=== PATIENT | male | born 1945 | race Caucasian/White ===

== ENCOUNTER → 2018-02-21 | Outpatient (CLI) | payer MEDICARE ==
[~2018-02-21] MED LIST: ATOR20TA PO; CARV25TA2 PO; FURO20TA3 PO; INSU100I13 SQ; INSU100I17 SQ; LEVO100T PO; LOSA50TA7 PO; SIRO1SOL PO; SIRO1TAB PO; TACR0.5C20 PO; TACR1CAP4 PO; WARF4TAB64 PO
== END | disposition home or self-care (01) ==
LOC: PMGWOUND 12:00
PROVIDERS: ATTEND Emergency Medicine Undersea and Hyperbaric Medicine
DX: T87.89 Other complications of amputation stump (principal); E11.621 Type 2 diabetes mellitus with foot ulcer; L97.514 Non-pressure chronic ulcer of other part of right foot with necrosis of bone; L97.521 Non-pressure chronic ulcer of other part of left foot limited to breakdown of skin; L97.411 Non-pressure chronic ulcer of right heel and midfoot limited to breakdown of skin; E11.51 Type 2 diabetes mellitus with diabetic peripheral angiopathy without gangrene; I11.0 Hypertensive heart disease with heart failure; I50.9 Heart failure, unspecified; M19.90 Unspecified osteoarthritis, unspecified site; I48.91 Unspecified atrial fibrillation; K21.9 Gastro-esophageal reflux disease without esophagitis; E78.5 Hyperlipidemia, unspecified; G47.30 Sleep apnea, unspecified; I25.10 Atherosclerotic heart disease of native coronary artery without angina pectoris; E66.9 Obesity, unspecified; Z68.33 Body mass index [BMI] 33.0-33.9, adult; Z85.828 Personal history of other malignant neoplasm of skin; Z86.73 Personal history of transient ischemic attack (TIA), and cerebral infarction without residual deficits; Y83.5 Amputation of limb(s) as the cause of abnormal reaction of the patient, or of later complication, without mention of misadventure at the time of the procedure
CPT/HCPCS: 99205

== ENCOUNTER 2018-03-26 05:11 | Emergency (ER) | payer MEDICARE ==
[~2018-03-26] VITALS: Ht 180.3 cm; Wt 127.0 kg
[~2018-03-26 05:11] MED LIST changes: +AMLO5TAB7 PO; +LOSA-73 PO; -LOSA50TA7 PO; +NYST15CR TP
[2018-03-26 05:36] LABS: BASO % 1 % (0-3); EOS # 0.2 x10^3/uL (0.0-0.7); EOS % 4 % (0-3); HEMATOCRIT 33.9 % (39.0-53.0); HEMOGLOBIN 11.2 g/dL (13.0-17.5); LYMPH # 0.6 x10^3/uL (1.0-4.8); LYMPH % 12 % (24-48); MEAN CORPUSCULAR HEMOGLOBIN 27 pg (25-35); MEAN CORPUSCULAR HGB CONC 33 g/dL (31-37); MEAN CORPUSCULAR VOLUME 83 fL (79-100); MONO # 0.6 x10^3/uL (0.0-1.1); MONO % 11 % (0-9); NEUT # 3.7 x10^3uL (1.8-7.7); NEUT % 73 % (31-73); PLATELET COUNT 185 x10^3/uL (140-400); RED BLOOD COUNT 4.09 x10^6/uL (4.30-5.70); RED CELL DISTRIBUTION WIDTH 17.1 % (11.5-14.5)
[2018-03-26 05:43] LABS: CALCIUM 9.5 mg/dL (8.5-10.1); CREATININE 1.4 mg/dL (0.7-1.3); GFR 49.8; POTASSIUM 4.4 mmol/L (3.5-5.1)
[2018-03-26 05:49] LABS: ALBUMIN 2.7 g/dL (3.4-5.0); ALBUMIN/GLOBULIN RATIO 0.6 (1.0-1.7); TOTAL BILIRUBIN 0.3 mg/dL (0.2-1.0); TOTAL PROTEIN 6.9 g/dL (6.4-8.2)
--- NOTE | 2018-03-26 05:49 | PHYS DOC ---
Adult General Chief Complaint Chief Complaint: COUGH HPI HPI Patient is a 72-year-old male who presents via EMS with report of coughing up blood. Patient states that he does not recall the incident and states that he is not sure how long he has been coughing for. He denies any chest pain or shortness of breath. He also denies any abdominal pain, nausea or vomiting. Patient states that he does not believe that he has had a nosebleed but admits that he does not recall. Additional history is limited as patient is very poor historian associated with dementia. Review of Systems Review of Systems Constitutional: Denies fever or chills [] HENT: Positive epistaxis[] Respiratory: Positive cough and hemoptysis without shortness of breath [] Cardiovascular: No additional information not addressed in HPI [] GI: Denies abdominal pain, nausea, vomiting [] Musculoskeletal: Denies back pain or joint pain [] All other systems were reviewed and found to be within normal limits, except as documented in this note. Allergies Allergies Allergies Coded Allergies Type Severity Reaction Last Updated Verified piperacillin Allergy Intermediate FEVER 02/24/18 Yes tazobactam Allergy Intermediate FEVER 02/24/18 Yes Physical Exam Physical Exam Constitutional: Well developed, well nourished, no acute distress, non-toxic appearance. [] HENT: Normocephalic, atraumatic, bilateral external ears normal, oropharynx moist, no oral exudates, fresh blood is noted within the right naris. [] Eyes: PERRLA, EOMI, conjunctiva normal, no discharge. [] Neck: Normal range of motion, no tenderness, supple, no stridor. [] Cardiovascular: Regular rate and rhythm [] Lungs & Thorax: Bilateral breath sounds clear to auscultation [] Abdomen: Bowel sounds normal, soft, no tenderness. [] Skin: Warm, dry, no erythema, no rash. [] Neurologic: Awake and alert, no focal deficits noted. [] Current Patient Data Vital Signs Vital Signs Date Time Temp Pulse Resp B/P (MAP) Pulse Ox O2 Delivery O2 Flow Rate FiO2 03/26/18 05:15 97.6 60 24 168/78 (108) 88 Room Air 97.6 Lab Values Laboratory Tests Test 03/26/18 05:25 White Blood Count 5.0 x10^3/uL (4.0-11.0) Red Blood Count 4.09 x10^6/uL (4.30-5.70) L Hemoglobin 11.2 g/dL (13.0-17.5) L Hematocrit 33.9 % (39.0-53.0) L Mean Corpuscular Volume 83 fL (79-100) Mean Corpuscular Hemoglobin 27 pg (25-35) Mean Corpuscular Hemoglobin Concent 33 g/dL (31-37) Red Cell Distribution Width 17.1 % (11.5-14.5) H Platelet Count 185 x10^3/uL (140-400) Neutrophils (%) (Auto) 73 % (31-73) Lymphocytes (%) (Auto) 12 % (24-48) L Monocytes (%) (Auto) 11 % (0-9) H Eosinophils (%) (Auto) 4 % (0-3) H Basophils (%) (Auto) 1 % (0-3) Neutrophils # (Auto) 3.7 x10^3uL (1.8-7.7) Lymphocytes # (Auto) 0.6 x10^3/uL (1.0-4.8) L Monocytes # (Auto) 0.6 x10^3/uL (0.0-1.1) Eosinophils # (Auto) 0.2 x10^3/uL (0.0-0.7) Basophils # (Auto) 0.0 x10^3/uL (0.0-0.2) Sodium Level 139 mmol/L (136-145) Potassium Level 4.4 mmol/L (3.5-5.1) Chloride Level 106 mmol/L (98-107) Carbon Dioxide Level 26 mmol/L (21-32) Anion Gap 7 (6-14) Blood Urea Nitrogen 30 mg/dL (8-26) H Creatinine 1.4 mg/dL (0.7-1.3) H Estimated GFR (Cockcroft-Gault) 49.8 BUN/Creatinine Ratio 21 (6-20) H Glucose Level 53 mg/dL (70-99) L Calcium Level 9.5 mg/dL (8.5-10.1) Total Bilirubin 0.3 mg/dL (0.2-1.0) Aspartate Amino Transferase (AST) 12 U/L (15-37) L Alanine Aminotransferase (ALT) 11 U/L (16-63) L Alkaline Phosphatase 102 U/L (46-116) Total Protein 6.9 g/dL (6.4-8.2) Albumin 2.7 g/dL (3.4-5.0) L Albumin/Globulin Ratio 0.6 (1.0-1.7) L Laboratory Tests 03/26/18 05:25 Laboratory Tests 03/26/18 05:25 EKG EKG [] Radiology/Procedures Radiology/Procedures [] Course & Med Decision Making Course & Med Decision Making Pertinent Labs and Imaging studies reviewed. (See chart for details) Patient moved to room upon arrival was evaluated by your medical staff after which blood work was obtained. I do feel that patient's episode of hemoptysis was due to epistaxis. At this time labs are pending and patient is signed out to Dr. Narvaez at 6:00 AM. Dragon Disclaimer Dragon Disclaimer This electronic medical record was generated, in whole or in part, using a voice recognition dictation system. Departure Departure Impression: Primary Impression: Epistaxis Additional Impression: Hypoglycemia Disposition: 01 HOME, SELF-CARE Condition: STABLE Referrals: ROSS SAMUEL MD (PCP) Patient Instructions: Hypoglycemia (Low Blood Sugar), Nosebleed Problem Qualifiers KHOA ARBOLEDA Jr. DO Mar 26, 2018 05:49
--- NOTE | 2018-03-26 07:45 | RAD ---
AP chest x-ray COMPARISON: Chest x-ray March 22, 2018. HISTORY: Cough FINDINGS: Marked cardiomegaly is stable. Single lead cardiac pacemaker again noted. Pulmonary vasculature congestion and pulmonary edema has mildly decreased. No pleural effusions or pneumothorax. Bones unremarkable. IMPRESSION: Mild improvement of the pulmonary vascular congestion and edema. Cardiomegaly is stable. Electronically signed by: Mickey Bee MD (03/26/2018 7:41 AM) [facility] [place]
[2018-03-26 08:37] VITALS: BP 160/75
== END 2018-03-26 08:30 | disposition home or self-care (01) ==
LOC: ER 05:11
DX: R04.0 Epistaxis (principal); E16.2 Hypoglycemia, unspecified; R04.2 Hemoptysis; F03.90 Unspecified dementia, unspecified severity, without behavioral disturbance, psychotic disturbance, mood disturbance, and anxiety; Z88.1 Allergy status to other antibiotic agents; Z88.8 Allergy status to other drugs, medicaments and biological substances
CPT/HCPCS: 36415; 71045; 80053; 85025; 99284

== ENCOUNTER → 2018-05-15 | Outpatient (CLI) | payer MEDICARE ==
[2018-04-10 05:23] VITALS: BP 178/69
[~2018-05-15] MED LIST changes: +ALPR0.254 PO; +ASPI-612 PO; +BISA10SU55 RC; +CEFD300C PO; +CLON0.1T12 PO; +DIPH25CA3 PO; +FURO40TA4 PO; +GUAI473L15 PO; +IPRA3AMP29 NEB; +ISOS30TA4 PO; +LACT1CAP21 PO; +LOPE2CAP88 PO; +MULT-245 PO; +POTA20TA4 PO; +WARF10TA45 MC
== END | disposition home or self-care (01) ==
LOC: PMGWOUND 10:53
PROVIDERS: ATTEND Nurse Practitioner Family
DX: T87.81 Dehiscence of amputation stump (principal); E11.621 Type 2 diabetes mellitus with foot ulcer; L97.514 Non-pressure chronic ulcer of other part of right foot with necrosis of bone; L97.512 Non-pressure chronic ulcer of other part of right foot with fat layer exposed; L97.413 Non-pressure chronic ulcer of right heel and midfoot with necrosis of muscle; L97.521 Non-pressure chronic ulcer of other part of left foot limited to breakdown of skin; L97.421 Non-pressure chronic ulcer of left heel and midfoot limited to breakdown of skin; E11.622 Type 2 diabetes mellitus with other skin ulcer; L89.899 Pressure ulcer of other site, unspecified stage; I13.2 Hypertensive heart and chronic kidney disease with heart failure and with stage 5 chronic kidney disease, or end stage renal disease; E11.22 Type 2 diabetes mellitus with diabetic chronic kidney disease; N18.6 End stage renal disease; I50.23 Acute on chronic systolic (congestive) heart failure; E11.52 Type 2 diabetes mellitus with diabetic peripheral angiopathy with gangrene; I96 Gangrene, not elsewhere classified; E11.42 Type 2 diabetes mellitus with diabetic polyneuropathy; E11.649 Type 2 diabetes mellitus with hypoglycemia without coma; E11.69 Type 2 diabetes mellitus with other specified complication; M86.179 Other acute osteomyelitis, unspecified ankle and foot; I48.0 Paroxysmal atrial fibrillation; I48.1 Persistent atrial fibrillation; I48.2 Chronic atrial fibrillation; E03.9 Hypothyroidism, unspecified; G47.30 Sleep apnea, unspecified; E78.5 Hyperlipidemia, unspecified; M19.90 Unspecified osteoarthritis, unspecified site; K21.9 Gastro-esophageal reflux disease without esophagitis; I25.10 Atherosclerotic heart disease of native coronary artery without angina pectoris; E66.9 Obesity, unspecified; Z68.33 Body mass index [BMI] 33.0-33.9, adult; Z79.4 Long term (current) use of insulin; Z99.2 Dependence on renal dialysis; Z85.810 Personal history of malignant neoplasm of tongue; Z85.820 Personal history of malignant melanoma of skin; Z85.528 Personal history of other malignant neoplasm of kidney; Z90.49 Acquired absence of other specified parts of digestive tract; Z86.73 Personal history of transient ischemic attack (TIA), and cerebral infarction without residual deficits; Y83.5 Amputation of limb(s) as the cause of abnormal reaction of the patient, or of later complication, without mention of misadventure at the time of the procedure
CPT/HCPCS: 11042; 97597

== ENCOUNTER 2018-06-21 07:52 | Inpatient (IN) | payer MEDICARE ==
[~2018-06-21] VITALS: Ht 177.8 cm; Wt 122.9 kg
[2018-06-21] VITALS (8 sets, daily range): BP systolic 151–201; BP diastolic 59–81
[~2018-06-21 07:52] MED LIST changes: +ACET325T9 PO; +AMLO5TAB10 PO; -AMLO5TAB7 PO; +ASCO500T2 PO; +CHOL100013 PO; +CYCL10TA2 PO; +HYDR-2761 PO; +HYDROmorphone 2 MG/ML VIAL IV PRN; +INSU100C SQ; +IV RINGERS,LACTATED 1000ML 1,000 ML IV SCH; +LIDOCAINE 1% PF 2 ML VIAL. ID PRN; +MERO500V15 IV; +MORPHINE SULFATE 2 MG/ML VIAL. IV PRN; +OMEG1CAP6 PO; +ONDANSETRON PF 4 MG/2 ML VIAL. IV PRN; +PROCHLORPERAZINE 10 MG/2 ML VIAL. IV PRN; +SULF1TAB24 PO; +UBID100C26 PO; +WARF2TAB96 PO; +fentaNYL PF VIAL 100 MCG/2 ML VIAL IV PRN
--- NOTE | 2018-06-21 10:20 | NUR ---
Pt arrived to unit via gurney. Transferred to bed in room without complications. Pt A&Ox4. Asked pt to verbalize pain. Pt explains, "what's the point?" Explained to pt the need to know his pain scale so he can be treated appropriately. Pt does not voice pain number at this time. Pt at bedside. Wound assessment complete with photos. New admit requirements in progress. Pt laying in bed with call light in reach at bedside.
--- NOTE | 2018-06-21 10:58 | PDOC2 ---
CONSULT Date of Consult Date of Consult DATE: 06/21/18 TIME: 10:43 Reason for Consult Reason for Consult: Bilateral lower extremity wounds, right leg amputation and left heel debridement scheduled for tomorrow. Referring Physician Referring Physician: Dr. Zamudio Identification/Chief Complaint Chief Complaint Bilateral lower extremity wounds, bilateral foot pain. Source Source: Caregiver, Chart review, Patient History of Present Illness Reason for Visit: 72 year old male well-known to our practice who was brought in via outpatient for planned surgical procedure. Patient noted to have abnormal lab values. Surgery has been postponed until tomorrow. Recommend patient be admitted via the hospitalist. Patient has a history of peripheral vascular disease with bilateral foot ulcers. During recent hospitalization patient had bilateral lower extremity angiograms with interventions. Patient continues to have problems with nonhealing bilateral foot ulcers despite intervention. Patient is scheduled for a right above-knee amputation along with left heel debridement tomorrow with Dr. Stewart. Will administer FFP and packed red blood cells with repeat labs in a.m. Past Medical History Cardiovascular: AFIB, HTN, Pulmonary hypertension, Other Pulmonary: No pertinent hx CENTRAL NERVOUS SYSTEM: CVA, Periperal neuropathy GI: Other Heme/Onc: No pertinent hx Hepatobiliary: No pertinent hx Psych: No pertinent hx Musculoskeletal: Osteoarthritis Rheumatologic: No pertinent hx Infectious disease: No pertinent hx Renal/: Chronic renal insuff, Renal Ca. Endocrine: Diabetes, Hypothyroidism Past Surgical History Past Surgical History: Cholecystectomy, Other (left leg angiogram with popliteal atherectomy, left first toe closed amputation, debridement left heel wound. Right lateral foot debridement. Right transmetatarsal any dictation open wound debridement. Right popliteal artery, TP trunk, posterior tibial artery, medial tarsal artery angioplasty.) Family History Family History: Hypertension Social History ALCOHOL: none Drugs: None Lives: with Family (currently residing in Rehab facility) Current Medications Current Medications Current Medications Ondansetron HCl (Zofran) 4 mg PRN Q6HRS PRN IV NAUSEA/VOMITING; Start 06/21/18 at 07:00; Stop 06/22/18 at 06:59 Fentanyl Citrate (Fentanyl 2ml Vial) 25 mcg PRN Q5MIN PRN IV MILD PAIN; Start 06/21/18 at 07:00; Stop 06/22/18 at 06:59 Fentanyl Citrate (Fentanyl 2ml Vial) 50 mcg PRN Q5MIN PRN IV MODERATE TO SEVERE PAIN; Start 06/21/18 at 07:00; Stop 06/22/18 at 06:59 Morphine Sulfate (Morphine Sulfate) 1 mg PRN Q10MIN PRN IV SEVERE PAIN; Start 06/21/18 at 07:00; Stop 06/22/18 at 06:59 Ringer's Solution 1,000 ml @ 30 mls/hr Q24H IV ; Start 06/21/18 at 07:00; Stop 06/21/18 at 18:59 Lidocaine HCl (Xylocaine-Mpf 1% 2ml Vial) 2 ml PRN 1X PRN ID IV START; Start at 07:00; Stop 06/21/18 at 07:01; Status DC Hydromorphone HCl (Dilaudid) 0.5 mg PRN Q10MIN PRN IV SEV PAIN, Second choice; Start 06/21/18 at 07:00; Stop 06/22/18 at 06:59 Prochlorperazine Edisylate (Compazine) 5 mg PACU PRN PRN IV NAUSEA, MRX1; Start 06/21/18 at 07:00; Stop 06/22/18 at 06:59 Cefazolin Sodium/ Dextrose 50 ml @ 100 mls/hr 1X PREOP PRN IV PRIOR TO PROCEDURE; Start 06/21/18 at 06:00; Stop 06/21/18 at 09:40; Status DC Cefazolin Sodium/ Dextrose 50 ml @ 100 mls/hr 1X PREOP PRN IV PRIOR TO PROCEDURE; Start 06/21/18 at 09:45; Stop 06/22/18 at 09:44 Active Scripts Active Vitamin C (Ascorbic Acid) 500 Mg Tablet 500 Mg PO DAILY 30 Days Tylenol (Acetaminophen) 325 Mg Tablet 650 Mg PO PRN Q6HRS PRN 10 Days Hydrocodone-Apap 5-325 (Hydrocodone Bit/Acetaminophen) 1 Tab Tablet 1 Tab PO PRN QID PRN 5 Days Aspirin Ec (Aspirin) 81 Mg Tablet.dr 81 Mg PO DAILYWBKFT 30 Days Duoneb 0.5-3(2.5) Mg/3 Ml (Albuterol/Ipratropium) 3 Ml Ampul.neb 3 Ml NEB PRN QID PRN 30 Days Reported Cyclobenzaprine Hcl 10 Mg Tablet 0-5 Tab PO PRN Q6HRS PRN Meropenem 500 Mg Vial 500 Mg IV Q8HRS Humalog (Insulin Lispro) 100 Unit/1 Ml Cartridge 0 SQ QIDACHS Lantus Solostar (Insulin Glargine,Hum.rec.anlog) 100 Unit/1 Ml Insuln.pen 15 Unit SQ QHS Warfarin Sodium 2 Mg Tablet 2 Mg PO DAILY [id number] Coq-10 (Ubidecarenone) 100 Mg Capsule 100 Mg PO DAILY Vitamin D (Cholecalciferol (Vitamin D3)) 1,000 Unit Capsule 1 Cap PO DAILY Culturelle (Lactobacillus Rhamnosus Gg) 1 Each Capsule 1 Each PO BID Multi Vitamin Daily (Multivitamin) 1 Each Tablet 1 Each PO DAILY Furosemide 40 Mg Tablet 1 Tab PO DAILY Prograf (Tacrolimus) 0.5 Mg Capsule 0.5 Mg PO BID Rapamune (Sirolimus) 1 Mg Tablet 1 Mg PO DAILY Lipitor (Atorvastatin Calcium) 20 Mg Tablet 1 Tab PO QHS Synthroid (Levothyroxine Sodium) 100 Mcg Tablet 1 Tab PO DAILY Carvedilol 25 Mg Tablet 1 Tab PO BID Allergies Allergies: Coded Allergies: adhesive (Verified Allergy, Intermediate, small blisters on skin, 05/23/18) piperacillin (Verified Allergy, Intermediate, FEVER, 02/24/18) tazobactam (Verified Allergy, Intermediate, FEVER, 02/24/18) ROS Review of System Constitutional: No fever, chills, fatigue or weight loss. Respiratory: No cough or sputum production. Cardiovascular: No chest pain, palpitations or peripheral edema. Gastrointestinal: No abdominal pain, nausea, constipation or diarrhea. Integumentary/breast: As per HPI. Musculoskeletal: As per HPI, limited mobility due to lower extremity wounds. Neurological: No gross deficits All other reviews systems negative except history of present illness. Physical Exam General: Alert, Oriented X3 Lungs: Normal air movement Skin: Other (Dressings dry and intact to right foot, healed left first toe amputation, left heel with dry gangrene. Palpable left DP, Doppler Left PT, Doppler Right DP.) Assessment/Plan Assessment/Plan Impression: 1. Left bilateral foot ulcers, peripheral vascular disease. 2. Diabetes 3. Renal Insufficiency 4. Anticoagulation 5. History of kidney transplant Plan: Right Above Knee amputation and left heel debridement 06/22/2018. INR 1.6 H/H: 8.9 /26.9. Administer FFP and PRBCs, repeat lab in am. Would prefer INR near normal to proceed with amputation. Continue bedrest with off-loading left heel. Hold Warfarin Continue antiplatelet therapy with aspirin. Consult Wound Care Consult ID FELICITA DONATO APRN Jun 21, 2018 10:58
[2018-06-21] MEDS ORDERED: MICO130A9 TP (13:15)
[2018-06-21] MEDS ORDERED: ACETAMINOPHEN 325 MG TABLET. PO PRN (13:30)
[2018-06-21] MEDS ORDERED: ALBUTEROL SULFATE 2.5 MG/3 ML NEBU. NEB PRN (13:30)
[2018-06-21] MEDS: LEVOTHYROXINE 100 MCG TABLET PO SCH (14:00)
[2018-06-21] MEDS: FUROSEMIDE 40 MG TABLET. PO SCH (14:00)
[2018-06-21] MEDS: TACROLIMUS 0.5 MG CAPSULE PO SCH ×2 (14:00→22:09)
[2018-06-21] MEDS: SIROLIMUS 1 MG PO SCH (14:00)
[2018-06-21] MEDS ORDERED: MEROPENEM 500 MG IV SCH (14:00)
[2018-06-21] MEDS: ASCORBIC ACID 500 MG TABLET PO SCH (14:19)
[2018-06-21] MEDS: MICONAZOLE NITRATE 2% TOPICAL POWDER 85GM JAR. TP SCH ×2 (14:19→22:15)
[2018-06-21] MEDS: CHOLECALCIFEROL (VITAMIN D3) 1,000 UNIT TABLET PO SCH (14:19)
[2018-06-21] MEDS: HYDROcodone/APAP 5/325MG 1 TAB TABLET PO PRN ×2 (14:19→17:32)
[2018-06-21] MEDS: MULTIVITAMIN with MINERAL TABLET. PO SCH (14:19)
[2018-06-21] MEDS: MEROPENEM 500 MG in IV NORMAL SALINE 50ML 50 ML IV SCH ×2 (14:20→22:34)
--- NOTE | 2018-06-21 14:53 | PDOC ---
Infectious Disease Note Subjective: Subjective Pt well known to our team from last hosp Readmitted for planned amputation of the Rt AKA and Lt foot debridement tomorrrow if labs permit 72 year old male history of peripheral vascular disease with bilateral foot nonhealing ulcers, renal transplant, s/p numerous vascular interventions including I and Ds .Pt was on merrem . Patient continues to have problems with nonhealing bilateral foot ulcers despite prolonged medical and surgical intervention. Patient is scheduled for a right above-knee amputation along with left heel debridement tomorrow Today pt denies any f/c/n/v/d/sob/cough/chestpain/abdo pain/gu symptoms ROS neg PMH see last consult Med reviewed Allergies zosyn but is tolerating merrem SH denies any smoking,etoh ROS: ROS Negative except for above. 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 Oral cavity clear NECK: Supple LUNGS: Clear. HEART: S1, S2. Pacemaker ABDOMEN: Soft, nontender EXTREMITIES: Both lower extremities/feet bandaged w/ wound vac in place ( Bilat foot wounds ,see vascular note) SKIN: No rash NEUROLOGIC: Alert, responds appropriately and follows commands PICC line in place Medications: Inpatient Meds: Current Medications Medications (Trade) Dose Ordered Sig/Dee Dee Start Time Stop Time Status Last Admin Dose Admin Acetaminophen (Tylenol) 650 mg PRN Q6HRS PRN 06/21/18 13:30 Acetaminophen/ Hydrocodone Bitart (Lortab 5/325) 1 tab PRN QID PRN 06/21/18 13:30 06/21/18 14:19 1 TAB Albuterol Sulfate (Ventolin Neb Soln) 2.5 mg PRN Q6HRS PRN 06/21/18 13:30 Ascorbic Acid (Vitamin C) 500 mg DAILY 06/21/18 14:00 06/21/18 14:19 500 MG Atorvastatin Calcium (Lipitor) 20 mg QHS 06/21/18 21:00 Carvedilol (Coreg) 25 mg BIDWMEALS 06/21/18 17:00 Cefazolin Sodium/ Dextrose 50 ml @ 100 mls/hr 1X PREOP PRN 06/21/18 09:45 06/22/18 09:44 Cyclobenzaprine HCl (Flexeril) 10 mg PRN Q6HRS PRN 06/21/18 13:30 Fentanyl Citrate (Fentanyl 2ml Vial) 50 mcg PRN Q5MIN PRN 06/21/18 07:00 06/22/18 06:59 Furosemide (Lasix) 40 mg DAILY 06/21/18 14:00 Hydromorphone HCl (Dilaudid) 0.5 mg PRN Q10MIN PRN 06/21/18 07:00 06/22/18 06:59 Insulin Glargine (Lantus) 15 units QHS 06/21/18 21:00 Insulin Human Lispro (HumaLOG) 151-2,00: 2 UNITS 201-250... TIDWMEALS 06/21/18 17:00 Lactobacillus Rhamnosus (Culturelle) 1 cap BID 06/21/18 21:00 Levothyroxine Sodium (Synthroid) 100 mcg DAILY07 06/21/18 14:00 Lidocaine HCl (Xylocaine-Mpf 1% 2ml Vial) 2 ml PRN 1X PRN 06/21/18 07:00 06/21/18 07:01 DC Meropenem 500 mg/ Sodium Chloride 50 ml @ 100 mls/hr Q8HRS 06/21/18 14:00 06/21/18 14:20 100 MLS/HR Miconazole Nitrate (Desenex) 1 kale TID 06/21/18 14:00 06/21/18 14:19 1 KALE Morphine Sulfate (Morphine Sulfate) 1 mg PRN Q10MIN PRN 06/21/18 07:00 06/22/18 06:59 Multivitamins (Thera M Plus) 1 tab DAILY 06/21/18 14:00 06/21/18 14:19 1 TAB Non-Formulary Medication (Meropenem ) 500 mg Q8HRS 06/21/18 14:00 UNV Non-Formulary Medication (Sirolimus (Rapamune)) 1 mg DAILY 06/21/18 14:00 Non-Formulary Medication (Ubidecarenone (Coq-10)) 100 mg DAILY 06/22/18 09:00 UNV Ondansetron HCl (Zofran) 4 mg PRN Q6HRS PRN 06/21/18 07:00 06/22/18 06:59 Prochlorperazine Edisylate (Compazine) 5 mg PACU PRN PRN 06/21/18 07:00 06/22/18 06:59 Ringer's Solution 1,000 ml @ 30 mls/hr Q24H 06/21/18 07:00 06/21/18 18:59 Tacrolimus (Prograf) 0.5 mg BID 06/21/18 14:00 Vitamin D (Vitamin D3) 1,000 unit DAILY 06/21/18 14:00 06/21/18 14:19 1,000 UNIT Labs: Lab Laboratory Tests Test 06/21/18 10:31 Glucose (Fingerstick) 159 mg/dL (70-99) Objective: Assessment: Diabetic foot wounds RLE 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 Right lateral foot open wound with necrotic tissue and exposed bone -s/p sharp excisional debridement of the right lateral foot wound, removing necrotic skin, subcutaneous tissue, tendon and small amount of bone, 05/31 -s/p TMA open wound debridement sharply excising necrotic subcutaneous tissue throughout the wound bed, 2/ Awaiting RT AKA 06/22 s/p left leg angiogram with tibial angioplasty, 2/ DM HTN Renal transplant Renal insufficiency Warfarin therapy Plan: Plan of Care Continue meropenem cont supportive care cont wound management D/W RN Thank you GENESIS LOVE MD Jun 21, 2018 14:53
--- NOTE | 2018-06-21 15:15 | NUR ---
Wound care: Patient seen per wound care consult. See wound assessment. Patient is well known to us in the wound clinic. Patient scheduled for surgery tomorrow 06/22/18 for Right AKA per RN. RN stated she pictured, measured, and redressed all right extremity wounds. Wound care to see patient for left heel wound. Wound cleansed and assessed. Recommendations for medi-honey, xeroform gauze, and foam dressing. Dressing applied and patient tolerated well. Dressings to right extremity C/D/I. No other wounds noted upon complete head to toe assessment. Patient repositioned at this time. Patient is on a P-500. Bilateral podus boots reapplied. Dressing change instructions left in room. Bed lowered and call light in reach. Will follow up with patient on Tuesday.
[2018-06-21] MEDS: CYCLOBENZAPRINE 10 MG TABLET. PO PRN (15:24)
[2018-06-21] MEDS: cloNIDine HCL 0.1 MG TABLET PO PRN ×2 (15:25→22:09)
[2018-06-21] MEDS: INSULIN LISPRO 300 UNITS/3 ML INSULN.PEN. SQ SCH (17:00)
[2018-06-21] MEDS: CARVEDILOL 12.5 MG TABLET. PO SCH (17:31)
[2018-06-21] MEDS ORDERED: PHYTONADIONE 10 MG/ML ORAL SOLUTION. PO ONE (20:45)
--- NOTE | 2018-06-21 20:48 | NUR ---
This nurse spoke with Dr. Luu this evening. He stated to hold FFP for tonight and wait for labs to come back tomorrow before maybe giving a unit in the morning. Vitamin K was ordered for this evening as well as a repeat H&H to check if we need to administer another unit of PRBC. Will continue to monitor.
[2018-06-21 22:03] LABS: HEMATOCRIT 30.8 % (39.0-53.0)
[2018-06-21] MEDS: ATORVASTATIN CALCIUM 20 MG TABLET PO SCH (22:08)
[2018-06-21] MEDS: LACTOBACILLUS RHAMNOSUS GG 1 CAPSULE. PO SCH (22:09)
[2018-06-21] MEDS: INSULIN GLARGINE 300 UNITS/3 ML INSULN.PEN. SQ SCH (22:14)
[2018-06-22] VITALS (14 sets, daily range): BP systolic 152–224; BP diastolic 56–87
[2018-06-22] MEDS ORDERED: hydrALAZINE 20 MG/ML VIAL. IVP ONE (00:45)
--- NOTE | 2018-06-22 01:30 | NUR ---
Pt. was transferred to his "sand" bed. This nurse took picture of pt.'s coccyx and redressed it with foam.
[2018-06-22 04:36] LABS: BASO % 1 % (0-3); EOS # 0.1 x10^3/uL (0.0-0.7); EOS % 4 % (0-3); HEMATOCRIT 31.1 % (39.0-53.0); HEMOGLOBIN 10.2 g/dL (13.0-17.5); LYMPH # 0.5 x10^3/uL (1.0-4.8); LYMPH % 14 % (24-48); MEAN CORPUSCULAR HEMOGLOBIN 26 pg (25-35); MEAN CORPUSCULAR HGB CONC 33 g/dL (31-37); MEAN CORPUSCULAR VOLUME 81 fL (79-100); MONO # 0.4 x10^3/uL (0.0-1.1); MONO % 11 % (0-9); NEUT # 2.5 x10^3uL (1.8-7.7); NEUT % 70 % (31-73); PLATELET COUNT 116 x10^3/uL (140-400); RED BLOOD COUNT 3.86 x10^6/uL (4.30-5.70); RED CELL DISTRIBUTION WIDTH 16.7 % (11.5-14.5); WHITE BLOOD COUNT 3.6 x10^3/uL (4.0-11.0)
[2018-06-22 05:05] LABS: PROTHROMBIN TIME PATIENT 15.6 SEC (11.7-14.0)
[2018-06-22] MEDS: MEROPENEM 500 MG in IV NORMAL SALINE 50ML 50 ML IV SCH ×3 (05:59→22:12)
[2018-06-22] MEDS ORDERED: PROPOFOL 0 ML IV ONE (06:56)
[2018-06-22] MEDS ORDERED: FAMOTIDINE 20 MG/2 ML VIAL ONE (06:56)
[2018-06-22] MEDS ORDERED: ONDANSETRON PF 4 MG/2 ML VIAL. ONE (06:56)
[2018-06-22] MEDS ORDERED: DEXAMETHASONE SOD PHOS 20 MG/5 ML VIAL. ONE (06:56)
[2018-06-22] MEDS ORDERED: LIDOCAINE 2% PF 5 ML VIAL. ONE (06:56)
[2018-06-22] MEDS ORDERED: ROCURONIUM 50 MG/5 ML VIAL. ONE (06:57)
[2018-06-22] MEDS ORDERED: fentaNYL PF VIAL 100 MCG/2 ML VIAL ONE ×2 (06:57→10:10)
[2018-06-22] MEDS ORDERED: ONDANSETRON PF 4 MG/2 ML VIAL. IV PRN (07:00)
[2018-06-22] MEDS ORDERED: LIDOCAINE 1% PF 2 ML VIAL. ID PRN (07:00)
[2018-06-22] MEDS ORDERED: HYDROmorphone 2 MG/ML VIAL IV PRN (07:00)
[2018-06-22] MEDS ORDERED: MORPHINE SULFATE 2 MG/ML VIAL. IV PRN (07:00)
[2018-06-22] MEDS ORDERED: PROCHLORPERAZINE 10 MG/2 ML VIAL. IV PRN (07:00)
[2018-06-22] MEDS ORDERED: IV RINGERS,LACTATED 1000ML 1,000 ML IV SCH (07:00)
--- NOTE | 2018-06-22 07:11 | NUR ---
Pt.'s arrived in room around 0615. Report was given to AMY Robbins in PACU. Pt. left floor at 0639.
[2018-06-22] MEDS ORDERED: ETOMIDATE 20 MG/10 ML VIAL. IV ONE (07:38)
[2018-06-22] MEDS: INSULIN LISPRO 300 UNITS/3 ML INSULN.PEN. SQ SCH ×3 (07:59→17:00)
[2018-06-22] MEDS: MICONAZOLE NITRATE 2% TOPICAL POWDER 85GM JAR. TP SCH ×3 (08:00→21:00)
[2018-06-22] MEDS ORDERED: 0.9 % SODIUM CHLORIDE 20 ML VIAL. IJ ONE (08:38)
[2018-06-22] MEDS ORDERED: hydrALAZINE 20 MG/ML VIAL. ONE (08:38)
--- NOTE | 2018-06-22 08:38 | PDOC ---
GENERAL General: see dictated H&P. ok for surgery today. INR 1.3. VITAL SIGNS Vital Signs: Vital Signs Date Time Temp Pulse Resp B/P (MAP) Pulse Ox O2 Delivery O2 Flow Rate FiO2 06/22/18 06:56 97.4 63 17 194/83 97 Nasal Cannula 3.0 97.4 I & O I & O Intake and Output 06/22/18 07:00 Intake Total 30 ml Output Total 200 ml Balance -170 ml Intake Blood Product IV Normal Saline Flush 30 ml Output Urine Total 200 ml # Voids 1 # Bowel Movements 3 ALLERGIES Allergies: Allergies Coded Allergies Type Severity Reaction Last Updated Verified adhesive Allergy Intermediate small blisters on skin 05/23/18 Yes piperacillin Allergy Intermediate FEVER 02/24/18 Yes tazobactam Allergy Intermediate FEVER 02/24/18 Yes MEDS Medications: Current Medications Medications (Trade) Dose Ordered Sig/Dee Dee Start Time Stop Time Status Last Admin Dose Admin Acetaminophen (Tylenol) 650 mg PRN Q6HRS PRN 06/21/18 13:30 Acetaminophen/ Hydrocodone Bitart (Lortab 5/325) 1 tab PRN QID PRN 06/21/18 13:30 06/21/18 17:32 1 TAB Albuterol Sulfate (Ventolin Neb Soln) 2.5 mg PRN Q6HRS PRN 06/21/18 13:30 Ascorbic Acid (Vitamin C) 500 mg DAILY 06/21/18 14:00 06/21/18 14:19 500 MG Atorvastatin Calcium (Lipitor) 20 mg QHS 06/21/18 21:00 06/21/18 22:08 20 MG Carvedilol (Coreg) 25 mg BIDWMEALS 06/21/18 17:00 06/21/18 17:31 25 MG Cefazolin Sodium/ Dextrose 50 ml @ 100 mls/hr 1X PREOP PRN 06/21/18 09:45 06/22/18 09:44 Clonidine HCl (Catapres) 0.1 mg PRN Q6HRS PRN 06/21/18 15:30 06/21/18 22:09 0.1 MG Cyclobenzaprine HCl (Flexeril) 10 mg PRN Q6HRS PRN 06/21/18 13:30 06/21/18 15:24 10 MG Dexamethasone Sodium Phosphate (Decadron) 20 mg STK-MED ONCE 06/22/18 06:56 06/22/18 06:57 DC Etomidate (Amidate) 20 mg STK-MED ONCE 06/22/18 07:38 06/22/18 07:39 DC Famotidine (Pepcid Vial) 20 mg STK-MED ONCE 06/22/18 06:56 06/22/18 06:57 DC Fentanyl Citrate (Fentanyl 2ml Vial) 100 mcg STK-MED ONCE 06/22/18 06:57 06/22/18 06:58 DC Furosemide (Lasix) 40 mg DAILY 06/21/18 14:00 Hydralazine HCl (Apresoline Inj) 10 mg 1X ONCE 06/22/18 00:45 06/22/18 00:46 DC 06/22/18 00:54 10 MG Hydromorphone HCl (Dilaudid) 0.5 mg PRN Q10MIN PRN 06/22/18 07:00 06/23/18 06:59 Insulin Glargine (Lantus) 15 units QHS 06/21/18 21:00 06/21/18 22:14 15 UNITS Insulin Human Lispro (HumaLOG) 151-2,00: 2 UNITS 201-250... TIDWMEALS 06/21/18 17:00 Lactobacillus Rhamnosus (Culturelle) 1 cap BID 06/21/18 21:00 06/21/18 22:09 1 CAP Levothyroxine Sodium (Synthroid) 100 mcg DAILY07 06/21/18 14:00 Lidocaine HCl (Lidocaine Pf 2% Vial) 5 ml STK-MED ONCE 06/22/18 06:56 06/22/18 06:57 DC Lidocaine HCl (Xylocaine-Mpf 1% 2ml Vial) 2 ml PRN 1X PRN 06/22/18 07:00 06/23/18 06:59 Meropenem 500 mg/ Sodium Chloride 50 ml @ 100 mls/hr Q8HRS 06/21/18 14:00 06/22/18 05:59 100 MLS/HR Miconazole Nitrate (Desenex) 1 kale TID 06/21/18 14:00 06/21/18 22:15 1 KALE Morphine Sulfate (Morphine Sulfate) 1 mg PRN Q10MIN PRN 06/22/18 07:00 06/23/18 06:59 Multivitamins (Thera M Plus) 1 tab DAILY 06/21/18 14:00 06/21/18 14:19 1 TAB Non-Formulary Medication (Meropenem ) 500 mg Q8HRS 06/21/18 14:00 UNV Non-Formulary Medication (Sirolimus (Rapamune)) 1 mg DAILY 06/21/18 14:00 Non-Formulary Medication (Ubidecarenone (Coq-10)) 100 mg DAILY 06/22/18 09:00 UNV Ondansetron HCl (Zofran) 4 mg STK-MED ONCE 06/22/18 06:56 06/22/18 06:57 DC Phytonadione (Mephyton Oral Soln) 5 mg 1X ONCE 06/21/18 20:45 06/21/18 20:46 DC 06/21/18 22:07 5 MG Prochlorperazine Edisylate (Compazine) 5 mg PACU PRN PRN 06/22/18 07:00 06/23/18 06:59 Propofol 0 ml @ As Directed STK-MED ONCE 06/22/18 06:56 06/22/18 06:57 DC Ringer's Solution 1,000 ml @ 30 mls/hr Q24H 06/22/18 07:00 06/22/18 18:59 Rocuronium [place] (Zemuron) 50 mg STK-MED ONCE 06/22/18 06:57 06/22/18 06:58 DC Tacrolimus (Prograf) 0.5 mg BID 06/21/18 14:00 06/21/18 22:09 0.5 MG Vitamin D (Vitamin D3) 1,000 unit DAILY 06/21/18 14:00 06/21/18 14:19 1,000 UNIT LAB Lab: Laboratory Tests Test 06/21/18 10:31 06/21/18 16:17 06/21/18 20:26 06/21/18 21:45 Glucose (Fingerstick) 159 mg/dL (70-99) 199 mg/dL (70-99) 189 mg/dL (70-99) Hemoglobin 10.0 g/dL (13.0-17.5) Hematocrit 30.8 % (39.0-53.0) Mean Corpuscular Hemoglobin Concent 32 g/dL (31-37) Test 06/22/18 04:00 06/22/18 07:18 White Blood Count 3.6 x10^3/uL (4.0-11.0) Red Blood Count 3.86 x10^6/uL (4.30-5.70) Hemoglobin 10.2 g/dL (13.0-17.5) Hematocrit 31.1 % (39.0-53.0) Mean Corpuscular Volume 81 fL (79-100) Mean Corpuscular Hemoglobin 26 pg (25-35) Mean Corpuscular Hemoglobin Concent 33 g/dL (31-37) Red Cell Distribution Width 16.7 % (11.5-14.5) Platelet Count 116 x10^3/uL (140-400) Neutrophils (%) (Auto) 70 % (31-73) Lymphocytes (%) (Auto) 14 % (24-48) Monocytes (%) (Auto) 11 % (0-9) Eosinophils (%) (Auto) 4 % (0-3) Basophils (%) (Auto) 1 % (0-3) Neutrophils # (Auto) 2.5 x10^3uL (1.8-7.7) Lymphocytes # (Auto) 0.5 x10^3/uL (1.0-4.8) Monocytes # (Auto) 0.4 x10^3/uL (0.0-1.1) Eosinophils # (Auto) 0.1 x10^3/uL (0.0-0.7) Basophils # (Auto) 0.0 x10^3/uL (0.0-0.2) Prothrombin Time 15.6 SEC (11.7-14.0) Prothromb Time International Ratio 1.3 (0.8-1.1) Glucose (Fingerstick) 91 mg/dL (70-99) ROSS SAMUEL MD Jun 22, 2018 08:38
[2018-06-22] MEDS ORDERED: NEOSTIGMINE 10 MG/10 ML VIAL. ONE (08:39)
[2018-06-22] MEDS ORDERED: GLYCOPYRROLATE 1 MG/5 ML VIAL. ONE (08:39)
--- NOTE | 2018-06-22 08:46 | PDOC ---
Infectious Disease Note Subjective: Subjective pt doing ok denies any f/c/n/v/d/sob/cough/chestpain/abdo pain/gu symptoms awaiting surgery today ROS: ROS Negative except for above. 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 Oral cavity clear NECK: Supple LUNGS: Clear. HEART: S1, S2. Pacemaker ABDOMEN: Soft, nontender EXTREMITIES: Both lower extremities/feet bandaged w/ wound vac in place ( Bilat foot wounds ,see vascular note) SKIN: No rash NEUROLOGIC: Alert, responds appropriately and follows commands PICC line in place Medications: Inpatient Meds: Current Medications Medications (Trade) Dose Ordered Sig/Dee Dee Start Time Stop Time Status Last Admin Dose Admin Acetaminophen (Tylenol) 650 mg PRN Q6HRS PRN 06/21/18 13:30 Acetaminophen/ Hydrocodone Bitart (Lortab 5/325) 1 tab PRN QID PRN 06/21/18 13:30 06/21/18 17:32 1 TAB Albuterol Sulfate (Ventolin Neb Soln) 2.5 mg PRN Q6HRS PRN 06/21/18 13:30 Ascorbic Acid (Vitamin C) 500 mg DAILY 06/21/18 14:00 06/21/18 14:19 500 MG Atorvastatin Calcium (Lipitor) 20 mg QHS 06/21/18 21:00 06/21/18 22:08 20 MG Carvedilol (Coreg) 25 mg BIDWMEALS 06/21/18 17:00 06/21/18 17:31 25 MG Cefazolin Sodium/ Dextrose 50 ml @ 100 mls/hr 1X PREOP PRN 06/21/18 09:45 06/22/18 09:44 Clonidine HCl (Catapres) 0.1 mg PRN Q6HRS PRN 06/21/18 15:30 06/21/18 22:09 0.1 MG Cyclobenzaprine HCl (Flexeril) 10 mg PRN Q6HRS PRN 06/21/18 13:30 06/21/18 15:24 10 MG Dexamethasone Sodium Phosphate (Decadron) 20 mg STK-MED ONCE 06/22/18 06:56 06/22/18 06:57 DC Etomidate (Amidate) 20 mg STK-MED ONCE 06/22/18 07:38 06/22/18 07:39 DC Famotidine (Pepcid Vial) 20 mg STK-MED ONCE 06/22/18 06:56 06/22/18 06:57 DC Fentanyl Citrate (Fentanyl 2ml Vial) 100 mcg STK-MED ONCE 06/22/18 06:57 06/22/18 06:58 DC Furosemide (Lasix) 40 mg DAILY 06/21/18 14:00 Glycopyrrolate (Robinul) 1 mg STK-MED ONCE 06/22/18 08:39 06/22/18 08:40 DC Hydralazine HCl (Apresoline Inj) 20 mg STK-MED ONCE 06/22/18 08:38 06/22/18 08:39 DC Hydromorphone HCl (Dilaudid) 0.5 mg PRN Q10MIN PRN 06/22/18 07:00 06/23/18 06:59 Insulin Glargine (Lantus) 15 units QHS 06/21/18 21:00 06/21/18 22:14 15 UNITS Insulin Human Lispro (HumaLOG) 151-2,00: 2 UNITS 201-250... TIDWMEALS 06/21/18 17:00 Lactobacillus Rhamnosus (Culturelle) 1 cap BID 06/21/18 21:00 06/21/18 22:09 1 CAP Levothyroxine Sodium (Synthroid) 100 mcg DAILY07 06/21/18 14:00 Lidocaine HCl (Lidocaine Pf 2% Vial) 5 ml STK-MED ONCE 06/22/18 06:56 06/22/18 06:57 DC Lidocaine HCl (Xylocaine-Mpf 1% 2ml Vial) 2 ml PRN 1X PRN 06/22/18 07:00 06/23/18 06:59 Meropenem 500 mg/ Sodium Chloride 50 ml @ 100 mls/hr Q8HRS 06/21/18 14:00 06/22/18 05:59 100 MLS/HR Miconazole Nitrate (Desenex) 1 kale TID 06/21/18 14:00 06/21/18 22:15 1 KALE Morphine Sulfate (Morphine Sulfate) 1 mg PRN Q10MIN PRN 06/22/18 07:00 06/23/18 06:59 Multivitamins (Thera M Plus) 1 tab DAILY 06/21/18 14:00 06/21/18 14:19 1 TAB Neostigmine Methylsulfate (Bloxiverz) 10 mg STK-MED ONCE 06/22/18 08:39 06/22/18 08:40 DC Non-Formulary Medication (Meropenem ) 500 mg Q8HRS 06/21/18 14:00 UNV Non-Formulary Medication (Sirolimus (Rapamune)) 1 mg DAILY 06/21/18 14:00 Non-Formulary Medication (Ubidecarenone (Coq-10)) 100 mg DAILY 06/22/18 09:00 UNV Ondansetron HCl (Zofran) 4 mg STK-MED ONCE 06/22/18 06:56 06/22/18 06:57 DC Phytonadione (Mephyton Oral Soln) 5 mg 1X ONCE 06/21/18 20:45 06/21/18 20:46 DC 06/21/18 22:07 5 MG Prochlorperazine Edisylate (Compazine) 5 mg PACU PRN PRN 06/22/18 07:00 06/23/18 06:59 Propofol 0 ml @ As Directed STK-MED ONCE 06/22/18 06:56 06/22/18 06:57 DC Ringer's Solution 1,000 ml @ 30 mls/hr Q24H 06/22/18 07:00 06/22/18 18:59 Rocuronium Eudora (Zemuron) 50 mg STK-MED ONCE 06/22/18 06:57 06/22/18 06:58 DC Sodium Chloride (SODIUM CHLORIDE 20ml) 20 ml STK-MED ONCE 06/22/18 08:38 06/22/18 08:39 DC Tacrolimus (Prograf) 0.5 mg BID 06/21/18 14:00 06/21/18 22:09 0.5 MG Vitamin D (Vitamin D3) 1,000 unit DAILY 06/21/18 14:00 06/21/18 14:19 1,000 UNIT Labs: Lab Laboratory Tests Test 06/21/18 10:31 06/21/18 16:17 06/21/18 20:26 06/21/18 21:45 Glucose (Fingerstick) 159 mg/dL (70-99) 199 mg/dL (70-99) 189 mg/dL (70-99) Hemoglobin 10.0 g/dL (13.0-17.5) Hematocrit 30.8 % (39.0-53.0) Mean Corpuscular Hemoglobin Concent 32 g/dL (31-37) Test 06/22/18 04:00 06/22/18 07:18 White Blood Count 3.6 x10^3/uL (4.0-11.0) Red Blood Count 3.86 x10^6/uL (4.30-5.70) Hemoglobin 10.2 g/dL (13.0-17.5) Hematocrit 31.1 % (39.0-53.0) Mean Corpuscular Volume 81 fL (79-100) Mean Corpuscular Hemoglobin 26 pg (25-35) Mean Corpuscular Hemoglobin Concent 33 g/dL (31-37) Red Cell Distribution Width 16.7 % (11.5-14.5) Platelet Count 116 x10^3/uL (140-400) Neutrophils (%) (Auto) 70 % (31-73) Lymphocytes (%) (Auto) 14 % (24-48) Monocytes (%) (Auto) 11 % (0-9) Eosinophils (%) (Auto) 4 % (0-3) Basophils (%) (Auto) 1 % (0-3) Neutrophils # (Auto) 2.5 x10^3uL (1.8-7.7) Lymphocytes # (Auto) 0.5 x10^3/uL (1.0-4.8) Monocytes # (Auto) 0.4 x10^3/uL (0.0-1.1) Eosinophils # (Auto) 0.1 x10^3/uL (0.0-0.7) Basophils # (Auto) 0.0 x10^3/uL (0.0-0.2) Prothrombin Time 15.6 SEC (11.7-14.0) Prothromb Time International Ratio 1.3 (0.8-1.1) Glucose (Fingerstick) 91 mg/dL (70-99) Objective: Assessment: Diabetic foot wounds RLE 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 Right lateral foot open wound with necrotic tissue and exposed bone -s/p sharp excisional debridement of the right lateral foot wound, removing necrotic skin, subcutaneous tissue, tendon and small amount of bone, 05/31 -s/p TMA open wound debridement sharply excising necrotic subcutaneous tissue throughout the wound bed, 05/23 Awaiting RT AKA today with debridement of lt foot s/p left leg angiogram with tibial angioplasty, 05/23 DM HTN Renal transplant Renal insufficiency Warfarin therapy Plan: Plan of Care Continue meropenem awaiting surgery later today cont supportive care cont wound management GENESIS LOVE MD Jun 22, 2018 08:46
[2018-06-22] MEDS ORDERED: NON FORMULARY ITEM (Ubidecarenone (Coq-10) 100 MG) PO SCH (09:00)
--- NOTE | 2018-06-22 09:26 | HP ---
ADMIT DATE: 06/21/2018 CHIEF COMPLAINT AND HISTORY OF PRESENT ILLNESS: This 72-year-old white male is well known to me from followup in the office. The patient came back to the hospital from [facility] for needs of her right leg amputation because of ongoing infection, nonhealing wounds. They are also going to debride his left heel. His INR was elevated on the day of admission, which surgery was planned, and he will be held to the following day for definitive surgery. PAST MEDICAL HISTORY: Well documented in old charts. Highlights include a renal transplant with immunosuppression due to the same, diabetes. 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 Prior CVA, has peripheral neuropathy, coronary artery disease, peripheral vascular disease. He has a pacemaker with a defibrillator, hyperlipidemia, history of atrial fibrillation, hypertension, sleep apnea. He has had prior cholecystectomy, kidney transplant. History of gastroesophageal reflux, lumbar spinal stenosis, diabetes, hypothyroidism, depression. MEDICATIONS: Brought with the patient, listed on the computer and have been addressed. ALLERGIES: HE IS ALLERGIC TO ADHESIVE, TAZOBACTAM AND PIPERACILLIN. SOCIAL HISTORY: He is nonsmoker, nondrinker, does not use drugs, retired, lives at home with his . FAMILY HISTORY: Noncontributory. REVIEW OF SYSTEMS: Remarkable primarily for that of just depression over the thoughts of what his amputation is going to do to his mobility and lifestyle as we go into the future. PHYSICAL EXAMINATION: GENERAL: He is a well-developed, well-nourished white male, in no acute distress. VITAL SIGNS: Reveal an elevated blood pressure, is afebrile. HEAD, EYES, EARS, NOSE AND THROAT: Remarkable for glasses. NECK: Supple, without any lymphadenopathy or thyromegaly. CHEST: Clear to auscultation and percussion. HEART: Regular rate and rhythm without S3, S4 or murmur. ABDOMEN: Soft, nontender, without hepatosplenomegaly or mass. EXTREMITIES: Reveal dressings on both legs. NEUROLOGIC: Essentially nonfocal. IMPRESSION: 1. Bilateral foot ulcers with peripheral artery disease and nonhealing. 2. Diabetes. 3. Status post kidney transplant, anticoagulation therapy. PLAN: Right above the knee amputation, left heel debridement scheduled for the 7th. INR in the morning of surgery is 1.3. We will continue wound care following surgery, and this is turning into a heck of a mass with him having used up assisted time and now probably LTAC time, and I am not sure what the discharge disposition going to be at the time of discharge. ROSS SAMUEL MD DR: JENNIFER/roman JOB#: [id number] / [id number]
[2018-06-22] MEDS ORDERED: SEVOFLURANE > 120 MINUTES. IH ONE (09:34)
[2018-06-22] MEDS ORDERED: MORPHINE SULFATE 4 MG/ML VIAL. IV PRN (09:45)
--- NOTE | 2018-06-22 09:45 | PDOC ---
BRIEF OPERATIVE NOTE Date: Jun 22, 2018 Pre-Op Diagnosis Right foot osteomyelitis Left foot necrotic heel wound Bilateral peripheral arterial disease Post-Op Diagnosis Same Procedure Performed 1. Right above knee amputation with wound vac placement 2. Left heel wound debridement Surgeon Osei Stewart MD Print Line Operator YANI Shrestha Anesthesia Type: General Blood Loss 150mL Specimens Obtained Right leg Findings Significant right thigh edema leading to requirement for vac placement over primary closure of fascia Complications None Operative Note See detailed op note DAVE PAIGE Jun 22, 2018 09:45
[2018-06-22] MEDS: fentaNYL PF VIAL 100 MCG/2 ML VIAL IV PRN ×4 (10:16→11:05)
[2018-06-22] MEDS: oxyCODONE/APAP 5/325 1 TAB TABLET PO PRN ×3 (11:56→22:12)
[2018-06-22] MEDS: CARVEDILOL 12.5 MG TABLET. PO SCH ×2 (12:29→17:01)
[2018-06-22] MEDS: FUROSEMIDE 40 MG TABLET. PO SCH (12:29)
[2018-06-22] MEDS: ASCORBIC ACID 500 MG TABLET PO SCH (12:30)
[2018-06-22] MEDS: SIROLIMUS 1 MG PO SCH (12:30)
[2018-06-22] MEDS: TACROLIMUS 0.5 MG CAPSULE PO SCH ×2 (12:30→20:39)
[2018-06-22] MEDS: LACTOBACILLUS RHAMNOSUS GG 1 CAPSULE. PO SCH ×2 (12:30→20:39)
[2018-06-22] MEDS: MULTIVITAMIN with MINERAL TABLET. PO SCH (12:30)
[2018-06-22] MEDS: CHOLECALCIFEROL (VITAMIN D3) 1,000 UNIT TABLET PO SCH (12:30)
[2018-06-22] MEDS: LEVOTHYROXINE 100 MCG TABLET PO SCH (12:30)
[2018-06-22] MEDS: MORPHINE SULFATE 2 MG/ML VIAL. IV PRN (12:38)
[2018-06-22] MEDS: IV NORMAL SALINE 1000ML BAG 1,000 ML IV SCH (12:39)
--- NOTE | 2018-06-22 13:35 | PDOC4 ---
OPERATIVE NOTE Date: Date: Jun 22, 2018 Pre-Op Diagnosis: PAD, gangrene and osteomyelitis right foot, not improved with revascularization Left posterior heel wound with eschar and necrotic tissue Post-Op Diagnosis: Same as above Procedure Performed: #1 right above-knee amputation #2 easement of wound VAC right AKA stump 26 cm long by 4 cm wide by 3 cm deep #3 debridement left heel wound less than 20 cm down to tendon/deep tissues Surgeon: Mayuri Mccullough M.D. Inspector Watch Assembly:Crys [place] PA-C This was a difficult procedure and very ill patient with multiple medical problems. Not having a obstetric assistant would've prolong the procedure, expose the patient to more anesthetic time, and potentially caused competitions. This [facility] has no residents available for assist Anesthesia Type: Gen. Blood Loss: 100 mL Specimans Obtained: Right leg including the knee joint Findings: Healthy muscle at the level of the amputation Significant edema in the subcutaneous tissuesquestionable whether or not this would allow healing of a primary closure. The wound VAC was therefore placed Complications: None Operative Note: Patient was escorted to the operating room placed on the table. After placement of appropriate monitoring devices anesthesia was induced the difficulty. Both lower extremities were prepped and draped in usual sterile fashion. A careful timeout was performed. Attention was directed to the right leg where an area for incision just above the knee and a standard fishmouth technique for above-knee amputation was marked with a marking pen. Incision was made along this line with a #10 scalpel and extended down with Bovie cautery. 16 as tissues were all divided and found to be extremely edematous and inflamed. The fascia was divided and the underlying muscles identified and divided. This is taken down layer by layer with Bovie cautery with good hemostasis. We identified the superficial femoral artery and vein and the associated nerve. We this from surrounding structures and wide the vessel between clamps and then stick tied both ends. The remainder the muscle and soft tissue were divided and then the periosteal elevator was used to free of the Hemarrest proximal and wound as possible. A saw was then used to divide the femur and the leg was passed off the field as specimen. Some stick ties were used to obtain excellent hemostasis within the muscle tissue and then the wound was irrigated. Excellent hemostasis was ensured and then the wound was closed. The fascia was removed proximated with interrupted buried [id number] sutures using a 0 Vicryl stitch. Once the fascia was well approximated simultaneous tissue and skin were examined and found to be extremely edematous. There was active weeping of serous fluid from the tissues and I did not think that this would be amenable to primary closure as this would very likely breakdown and require re-debridement in the operating room. Given this a wound VAC was placed within the tissue with excellent seal. This measured 26 cm x 4 cm x 3 cm. Once the wound vacuum and placed with excellent seal attention was directed to the left heel wound. Spot size of a quarter. This was debrided aggressively with scissors by cutting away tissue and then also debrided with a curet by scraping weighted tissue. Bovie cautery was used to remove the rest the tissue until there was bleeding at the skin edges and the deep borders wound. This was taken down to the area of tendon and almost to bonedeep tissue debridement. A sterile dressing was placed over this afternoon was packed. Patient was awakened and escorted to recovery in stable condition. No locations , patient tolerated the procedure well throughout. The end of the case all sponge, needle, and instrument counts were reported to me as correct 2. MAYURI MCCULLOUGH MD Jun 22, 2018 13:35
[2018-06-22] MEDS: cloNIDine HCL 0.1 MG TABLET PO PRN ×2 (13:50→19:38)
--- NOTE | 2018-06-22 15:05 | NUR ---
SW following for discharge planning. Discussed with RN, pt is from [facility]. Pt is having an above knee amputation today. SW will continue to follow.
--- NOTE | 2018-06-22 15:09 | NUR ---
called consult to dr pereira at this time
--- NOTE | 2018-06-22 15:30 | NUR ---
ABHIJIT following. Pt's , Taniya having problems getting pt's Sirolimus medication which per pt's , she normally doesn't have to pay for. Taniya reported the pharmacy told her pt's insurance won't cover the medication whilst pt is in the hospital. Annetta CALIXTO attempted to figure this out and pharmacy advised pt normally has to pay $164. ABHIJIT met with pt's, who advised it is normally $0. SW advised Taniya contact pt's insurance to determine situation. ABHIJIT found [employer] coupon, if Taniya is interested in using this. ABHIJIT will continue to follow.
[2018-06-22] MEDS ORDERED: NITROGLYCERIN OINT 1 GM PACKET. TP SCH (17:00)
[2018-06-22] MEDS: amLODIPine BESYLATE 5 MG TABLET PO SCH (17:00)
--- NOTE | 2018-06-22 17:29 | PDOC2 ---
CONSULT Date of Consult Date of Consult DATE: 06/22/18 TIME: 17:21 Reason for Consult Reason for Consult: Hypertension control Referring Physician Referring Physician: Dr. Zamudio Identification/Chief Complaint Chief Complaint Leg pain Source Source: Chart review, Patient History of Present Illness Reason for Visit: The patient is a 72-year-old male with multiple total medical problems who underwent a right AKA and left heel debridement today by the vascular surgery service. He has been extubated and is now resting in bed. We've been asked to review him for better blood pressure control with a systolic pressure is now running approximately 180 mmHg. He has an extensive medical history including peripheral vascular disease, coronary artery disease, decreased ejection fraction on echocardiogram in February 2018 with an EF of 40% and an elevated pulmonary artery pressure at 64 mmHg, renal transplantation, implantable defibrillator with probable underlying atrial fibrillation for which he has been anticoagulated. The present time he is relatively comfortable in bed although continues to have some postop pain. He denies any chest discomfort. Past Medical History Cardiovascular: AFIB, CAD, CHF, HTN, Pulmonary hypertension, Other (AICD) Pulmonary: No pertinent hx CENTRAL NERVOUS SYSTEM: CVA, Periperal neuropathy GI: Other Heme/Onc: No pertinent hx Hepatobiliary: No pertinent hx Psych: No pertinent hx Musculoskeletal: Osteoarthritis Rheumatologic: No pertinent hx Infectious disease: No pertinent hx Renal/: Chronic renal insuff, Renal Ca. Endocrine: Diabetes, Hypothyroidism Past Surgical History Past Surgical History: Cholecystectomy, Other (AICD. Peripheral arterial surgery as noted above.) Family History Family History: Hypertension Social History ALCOHOL: none Drugs: None Lives: with Family (currently residing in Rehab facility) Current Medications Current Medications Current Medications Ondansetron HCl (Zofran) 4 mg PRN Q6HRS PRN IV NAUSEA/VOMITING; Start 06/21/18 at 07:00; Stop 06/22/18 at 06:59; Status DC Fentanyl Citrate (Fentanyl 2ml Vial) 25 mcg PRN Q5MIN PRN IV MILD PAIN; Start 06/21/18 at 07:00; Stop 06/22/18 at 06:59; Status DC Fentanyl Citrate (Fentanyl 2ml Vial) 50 mcg PRN Q5MIN PRN IV MODERATE TO SEVERE PAIN; Start 06/21/18 at 07:00; Stop 06/22/18 at 06:59; Status DC Morphine Sulfate (Morphine Sulfate) 1 mg PRN Q10MIN PRN IV SEVERE PAIN; Start 06/21/18 at 07:00; Stop 06/22/18 at 06:59; Status DC Ringer's Solution 1,000 ml @ 30 mls/hr Q24H IV ; Start 06/21/18 at 07:00; Stop 06/21/18 at 18:59; Status DC Lidocaine HCl (Xylocaine-Mpf 1% 2ml Vial) 2 ml PRN 1X PRN ID IV START; Start at 07:00; Stop 06/21/18 at 07:01; Status DC Hydromorphone HCl (Dilaudid) 0.5 mg PRN Q10MIN PRN IV SEV PAIN, Second choice; Start 06/21/18 at 07:00; Stop 06/22/18 at 06:59; Status DC Prochlorperazine Edisylate (Compazine) 5 mg PACU PRN PRN IV NAUSEA, MRX1; Start 06/21/18 at 07:00; Stop 06/22/18 at 06:59; Status DC Cefazolin Sodium/ Dextrose 50 ml @ 100 mls/hr 1X PREOP PRN IV PRIOR TO PROCEDURE; Start 06/21/18 at 06:00; Stop 06/21/18 at 09:40; Status DC Cefazolin Sodium/ Dextrose 50 ml @ 100 mls/hr 1X PREOP PRN IV PRIOR TO PROCEDURE; Start 06/21/18 at 09:45; Stop 06/22/18 at 09:44; Status DC Acetaminophen (Tylenol) 650 mg PRN Q6HRS PRN PO MILD pain; Start 06/21/18 at 13: 30 Ascorbic Acid (Vitamin C) 500 mg DAILY PO Last administered on 06/22/18at 12:30; Start 06/21/18 at 14:00 Atorvastatin Calcium (Lipitor) 20 mg QHS PO Last administered on 06/21/18at 22:08 ; Start 06/21/18 at 21:00 Cyclobenzaprine HCl (Flexeril) 10 mg PRN Q6HRS PRN PO MUSCLE SPASMS Last administered on 06/21/18at 15:24; Start 06/21/18 at 13:30 Furosemide (Lasix) 40 mg DAILY PO Last administered on 06/22/18at 12:29; Start at 14:00 Acetaminophen/ Hydrocodone Bitart (Lortab 5/325) 1 tab PRN QID PRN PO MODERATE- SEVERE PAIN Last administered on 06/21/18 17:32; Start 06/21/18 at 13:30; Stop at 10:08; Status DC Insulin Glargine (Lantus) 15 units QHS SQ Last administered on 06/21/18 22:14; Start 06/21/18 at 21:00 Albuterol Sulfate (Ventolin Neb Soln) 2.5 mg PRN Q6HRS PRN NEB SHORTNESS OF BREATH; Start 06/21/18 at 13:30 Levothyroxine Sodium (Synthroid) 100 mcg DAILY07 PO Last administered on 12:30; Start 06/21/18 at 14:00 Carvedilol (Coreg) 25 mg BIDWMEALS PO Last administered on 06/22/18 17:01; Start 06/21/18 at 17:00 Vitamin D (Vitamin D3) 1,000 unit DAILY PO Last administered on 06/22/18 12:30 ; Start 06/21/18 at 14:00 Insulin Human Lispro (HumaLOG) 151-2,00: 2 UNITS 201-250... TIDWMEALS SQ ; Start 06/21/18 at 17:00 Lactobacillus Rhamnosus (Culturelle) 1 cap BID PO Last administered on 12:30; Start 06/21/18 at 21:00 Non-Formulary Medication (Meropenem ) 500 mg Q8HRS IV ; Start 06/21/18 at 14:00; Status UNV Miconazole Nitrate (Desenex) 1 kale TID TP Last administered on 06/22/18 12:30; Start 06/21/18 at 14:00 Multivitamins (Thera M Plus) 1 tab DAILY PO Last administered on 06/22/18 12:30 ; Start 06/21/18 at 14:00 Non-Formulary Medication (Sirolimus (Rapamune)) 1 mg DAILY PO Last administered on 06/22/18 12:30; Start 06/21/18 at 14:00 Tacrolimus (Prograf) 0.5 mg BID PO Last administered on 06/22/18 12:30; Start 06/21/18 at 14:00 Non-Formulary Medication (Ubidecarenone (Coq-10)) 100 mg DAILY PO ; Start at 09:00; Status UNV Meropenem 500 mg/ Sodium Chloride 50 ml @ 100 mls/hr Q8HRS IV Last administered on 06/22/18at 13:50; Start 06/21/18 at 14:00 Clonidine HCl (Catapres) 0.1 mg PRN Q6HRS PRN PO SBP>160 Last administered on at 13:50; Start 06/21/18 at 15:30; Stop 06/22/18 at 16:31; Status DC Ondansetron HCl (Zofran) 4 mg PRN Q6HRS PRN IV NAUSEA/VOMITING; Start 06/22/18 at 07:00; Stop 06/23/18 at 06:59 Fentanyl Citrate (Fentanyl 2ml Vial) 25 mcg PRN Q5MIN PRN IV MILD PAIN Last administered on 06/22/18at 11:05; Start 06/22/18 at 07:00; Stop 06/23/18 at 06:59 Fentanyl Citrate (Fentanyl 2ml Vial) 50 mcg PRN Q5MIN PRN IV MODERATE TO SEVERE PAIN Last administered on 06/22/18at 10:16; Start 06/22/18 at 07:00; Stop at 06:59 Morphine Sulfate (Morphine Sulfate) 1 mg PRN Q10MIN PRN IV SEVERE PAIN; Start 06/22/18 at 07:00; Stop 06/23/18 at 06:59 Ringer's Solution 1,000 ml @ 30 mls/hr Q24H IV ; Start 06/22/18 at 07:00; Stop 06/22/18 at 18:59 Lidocaine HCl (Xylocaine-Mpf 1% 2ml Vial) 2 ml PRN 1X PRN ID PRIOR TO IV START ; Start 06/22/18 at 07:00; Stop 06/23/18 at 06:59 Hydromorphone HCl (Dilaudid) 0.5 mg PRN Q10MIN PRN IV SEV PAIN, Second choice; Start 06/22/18 at 07:00; Stop 06/23/18 at 06:59 Prochlorperazine Edisylate (Compazine) 5 mg PACU PRN PRN IV NAUSEA, MRX1; Start 06/22/18 at 07:00; Stop 06/23/18 at 06:59 Phytonadione (Mephyton Oral Soln) 5 mg 1X ONCE PO Last administered on at 22:07; Start 06/21/18 at 20:45; Stop 06/21/18 at 20:46; Status DC Hydralazine HCl (Apresoline Inj) 10 mg 1X ONCE IVP Last administered on at 00:54; Start 06/22/18 at 00:45; Stop 06/22/18 at 00:46; Status DC Propofol 0 ml @ As Directed STK-MED ONCE IV ; Start 06/22/18 at 06:56; Stop at 06:57; Status DC Dexamethasone Sodium Phosphate (Decadron) 20 mg STK-MED ONCE .ROUTE ; Start 06/22 at 06:56; Stop 06/22/18 at 06:57; Status DC Famotidine (Pepcid Vial) 20 mg STK-MED ONCE .ROUTE ; Start 06/22/18 at 06:56; Stop 06/22/18 at 06:57; Status DC Lidocaine HCl (Lidocaine Pf 2% Vial) 5 ml STK-MED ONCE .ROUTE ; Start 06/22/18 at 06:56; Stop 06/22/18 at 06:57; Status DC Ondansetron HCl (Zofran) 4 mg STK-MED ONCE .ROUTE ; Start 06/22/18 at 06:56; Stop 06/22/18 at 06:57; Status DC Rocuronium [place] (Zemuron) 50 mg STK-MED ONCE .ROUTE ; Start 06/22/18 at 06:57 ; Stop 06/22/18 at 06:58; Status DC Fentanyl Citrate (Fentanyl 2ml Vial) 100 mcg STK-MED ONCE .ROUTE ; Start at 06:57; Stop 06/22/18 at 06:58; Status DC Etomidate (Amidate) 20 mg STK-MED ONCE IV ; Start 06/22/18 at 07:38; Stop at 07:39; Status DC Hydralazine HCl (Apresoline Inj) 20 mg STK-MED ONCE .ROUTE ; Start 06/22/18 at 08 :38; Stop 06/22/18 at 08:39; Status DC Sodium Chloride (SODIUM CHLORIDE 20ml) 20 ml STK-MED ONCE IJ ; Start 06/22/18 at 08:38; Stop 06/22/18 at 08:39; Status DC Neostigmine Methylsulfate (Bloxiverz) 10 mg STK-MED ONCE .ROUTE ; Start 06/22/18 at 08:39; Stop 06/22/18 at 08:40; Status DC Glycopyrrolate (Robinul) 1 mg STK-MED ONCE .ROUTE ; Start 06/22/18 at 08:39; Stop 06/22/18 at 08:40; Status DC Sevoflurane (Ultane) 90 ml STK-MED ONCE IH ; Start 06/22/18 at 09:34; Stop at 09:35; Status DC Morphine Sulfate (Morphine Sulfate) 4 mg PRN Q2HR PRN IV PAIN; Start 06/22/18 at 09:45; Stop 06/25/18 at 06:00 Morphine Sulfate (Morphine Sulfate) 2 mg PRN Q2HR PRN IV PAIN Last administered on 06/22/18at 12:38; Start 06/22/18 at 09:45 Oxycodone/ Acetaminophen (Percocet 5/325) 1 tab PRN Q4HRS PRN PO PAIN Last administered on 06/22/18at 11:56; Start 06/22/18 at 09:45 Fentanyl Citrate (Fentanyl 2ml Vial) 100 mcg STK-MED ONCE .ROUTE ; Start at 10:10; Stop 06/22/18 at 10:11; Status DC Sodium Chloride 1,000 ml @ 30 mls/hr Q24H IV Last administered on 06/22/18at 12: 39; Start 06/22/18 at 07:00 Amlodipine Besylate (Norvasc) 5 mg DAILY PO Last administered on 06/22/18at 17:00 ; Start 06/22/18 at 17:00 Nitroglycerin (Nitro-Bid Oint) 2 inch Q6HRS TP ; Start 06/22/18 at 17:00; Stop at 17:00; Status DC Clonidine HCl (Catapres) 0.1 mg PRN Q4HRS PRN PO SBP>160; Start 06/22/18 at 16: 45 Active Scripts Active Vitamin C (Ascorbic Acid) 500 Mg Tablet 500 Mg PO DAILY 30 Days Tylenol (Acetaminophen) 325 Mg Tablet 650 Mg PO PRN Q6HRS PRN 10 Days Hydrocodone-Apap 5-325 (Hydrocodone Bit/Acetaminophen) 1 Tab Tablet 1 Tab PO PRN QID PRN 5 Days Aspirin Ec (Aspirin) 81 Mg Tablet.dr 81 Mg PO DAILYWBKFT 30 Days Duoneb 0.5-3(2.5) Mg/3 Ml (Albuterol/Ipratropium) 3 Ml Ampul.neb 3 Ml NEB PRN QID PRN 30 Days Reported Miconazole Nitrate 130 Gm Aero.powd 130 Gm TP TID Cyclobenzaprine Hcl 10 Mg Tablet 0-5 Tab PO PRN Q6HRS PRN Meropenem 500 Mg Vial 500 Mg IV Q8HRS Humalog (Insulin Lispro) 100 Unit/1 Ml Cartridge 0 SQ QIDACHS Lantus Solostar (Insulin Glargine,Hum.rec.anlog) 100 Unit/1 Ml Insuln.pen 15 Unit SQ QHS Warfarin Sodium 2 Mg Tablet 2 Mg PO DAILY [id number] Coq-10 (Ubidecarenone) 100 Mg Capsule 100 Mg PO DAILY Vitamin D (Cholecalciferol (Vitamin D3)) 1,000 Unit Capsule 1 Cap PO DAILY Culturelle (Lactobacillus Rhamnosus Gg) 1 Each Capsule 1 Each PO BID Multi Vitamin Daily (Multivitamin) 1 Each Tablet 1 Each PO DAILY Furosemide 40 Mg Tablet 1 Tab PO DAILY Prograf (Tacrolimus) 0.5 Mg Capsule 0.5 Mg PO BID Rapamune (Sirolimus) 1 Mg Tablet 1 Mg PO DAILY Lipitor (Atorvastatin Calcium) 20 Mg Tablet 1 Tab PO QHS Synthroid (Levothyroxine Sodium) 100 Mcg Tablet 1 Tab PO DAILY Carvedilol 25 Mg Tablet 1 Tab PO BID Allergies Allergies: Coded Allergies: adhesive (Verified Allergy, Intermediate, small blisters on skin, 05/23/18) piperacillin (Verified Allergy, Intermediate, FEVER, 02/24/18) tazobactam (Verified Allergy, Intermediate, FEVER, 02/24/18) ROS Review of System Post operative pain. Physical Exam General: mild distress HEENT: Atraumatic Lungs: Clear to auscultation Heart: Regular rate Abdomen: Normal bowel sounds Vitals VITALS Vital Signs Date Time Temp Pulse Resp B/P (MAP) Pulse Ox O2 Delivery O2 Flow Rate FiO2 06/22/18 17:01 69 185/75 06/22/18 15:00 97.9 16 90 Nasal Cannula 3.0 97.9 Labs Labs Laboratory Tests Test 06/21/18 10:31 06/21/18 16:17 06/21/18 20:26 06/21/18 21:45 Glucose (Fingerstick) 159 mg/dL (70-99) 199 mg/dL (70-99) 189 mg/dL (70-99) Hemoglobin 10.0 g/dL (13.0-17.5) Hematocrit 30.8 % (39.0-53.0) Mean Corpuscular Hemoglobin Concent 32 g/dL (31-37) Test 06/22/18 04:00 06/22/18 07:18 06/22/18 12:03 White Blood Count 3.6 x10^3/uL (4.0-11.0) Red Blood Count 3.86 x10^6/uL (4.30-5.70) Hemoglobin 10.2 g/dL (13.0-17.5) Hematocrit 31.1 % (39.0-53.0) Mean Corpuscular Volume 81 fL (79-100) Mean Corpuscular Hemoglobin 26 pg (25-35) Mean Corpuscular Hemoglobin Concent 33 g/dL (31-37) Red Cell Distribution Width 16.7 % (11.5-14.5) Platelet Count 116 x10^3/uL (140-400) Neutrophils (%) (Auto) 70 % (31-73) Lymphocytes (%) (Auto) 14 % (24-48) Monocytes (%) (Auto) 11 % (0-9) Eosinophils (%) (Auto) 4 % (0-3) Basophils (%) (Auto) 1 % (0-3) Neutrophils # (Auto) 2.5 x10^3uL (1.8-7.7) Lymphocytes # (Auto) 0.5 x10^3/uL (1.0-4.8) Monocytes # (Auto) 0.4 x10^3/uL (0.0-1.1) Eosinophils # (Auto) 0.1 x10^3/uL (0.0-0.7) Basophils # (Auto) 0.0 x10^3/uL (0.0-0.2) Prothrombin Time 15.6 SEC (11.7-14.0) Prothromb Time International Ratio 1.3 (0.8-1.1) Glucose (Fingerstick) 91 mg/dL (70-99) 114 mg/dL (70-99) Laboratory Tests Test 06/21/18 20:26 06/21/18 21:45 06/22/18 04:00 06/22/18 07:18 Glucose (Fingerstick) 189 mg/dL (70-99) 91 mg/dL (70-99) Hemoglobin 10.0 g/dL (13.0-17.5) 10.2 g/dL (13.0-17.5) Hematocrit 30.8 % (39.0-53.0) 31.1 % (39.0-53.0) Mean Corpuscular Hemoglobin Concent 32 g/dL (31-37) 33 g/dL (31-37) White Blood Count 3.6 x10^3/uL (4.0-11.0) Red Blood Count 3.86 x10^6/uL (4.30-5.70) Mean Corpuscular Volume 81 fL (79-100) Mean Corpuscular Hemoglobin 26 pg (25-35) Red Cell Distribution Width 16.7 % (11.5-14.5) Platelet Count 116 x10^3/uL (140-400) Neutrophils (%) (Auto) 70 % (31-73) Lymphocytes (%) (Auto) 14 % (24-48) Monocytes (%) (Auto) 11 % (0-9) Eosinophils (%) (Auto) 4 % (0-3) Basophils (%) (Auto) 1 % (0-3) Neutrophils # (Auto) 2.5 x10^3uL (1.8-7.7) Lymphocytes # (Auto) 0.5 x10^3/uL (1.0-4.8) Monocytes # (Auto) 0.4 x10^3/uL (0.0-1.1) Eosinophils # (Auto) 0.1 x10^3/uL (0.0-0.7) Basophils # (Auto) 0.0 x10^3/uL (0.0-0.2) Prothrombin Time 15.6 SEC (11.7-14.0) Prothromb Time International Ratio 1.3 (0.8-1.1) Test 06/22/18 12:03 Glucose (Fingerstick) 114 mg/dL (70-99) Assessment/Plan Assessment/Plan 1. Status post right AKA and left heel debridement earlier today. Postop care as per the surgical service. 2. Hypertension. Patient is several hours post surgery. At this time would treat with 5 mg of Norvasc. Patient is on Coreg to 25 mg twice a day as well as clonidine when necessary. We'll continue to monitor blood pressure and pain control overnight. We'll update medications tomorrow. 3. Implantable defibrillator. Probable underlying atrial fibrillation. Continue present medications. Anticoagulation has been held and will resume as per the surgical service. 4. Hyperlipidemia. Resume statins. 5. Reported history of coronary disease. We'll check old records. Patient denies any chest pain. 6. Cardiomyopathy. Most recent echocardiogram from 3 months ago shows a ejection fraction of 40%. Continue present treatments. 7. Diabetes mellitus. As per the primary service. 8. Status post renal transplant. Continue baseline medications. Thank you for allowing us to participate in the care of your patient. BELL KEMP MD Jun 22, 2018 17:29
--- NOTE | 2018-06-22 19:53 | NUR ---
pt returned to floor at 1210 in stable condition but drowsy. pt is complaining of pain /. pt dressing is CDI. pt at bedside. call light within reach. received report from AMY Becker in PACU. will continue to monitor.
[2018-06-22] MEDS: ATORVASTATIN CALCIUM 20 MG TABLET PO SCH (20:39)
[2018-06-22] MEDS: INSULIN GLARGINE 300 UNITS/3 ML INSULN.PEN. SQ SCH (21:00)
--- NOTE | 2018-06-23 01:38 | NUR ---
Patient is experiencing phantom leg pain of the amputated limb. Patient is confused but does respond to name. Patient reports pain as "plenty" or "a lot" unable to identify pain score by way of numeric value. Patient seems to be resting comfortable throughout shift thus far. Patient does continue to repeatedly remove his simple face mask which is greatly affecting his O2 Saturation levels. Patient also continues to remove his O2 saturation sensor. Found patient to have removed it again at 0134 and O2 sat was 52%-63%. Returned patient to O2 and patient O2 level reached back in the the 90%-95%. Will continue to monitor the patient at an increased interval.
[2018-06-23 03:00] VITALS: BP 139/55
[2018-06-23] MEDS: MEROPENEM 500 MG in IV NORMAL SALINE 50ML 50 ML IV SCH ×3 (05:46→22:11)
[2018-06-23] MEDS: LEVOTHYROXINE 100 MCG TABLET PO SCH (05:46)
[2018-06-23] MEDS: oxyCODONE/APAP 5/325 1 TAB TABLET PO PRN ×2 (06:40→16:53)
[2018-06-23] MEDS: IV NORMAL SALINE 1000ML BAG 1,000 ML IV SCH (06:40)
[2018-06-23 07:00] VITALS: BP 135/49
[2018-06-23 07:17] LABS: HEMATOCRIT 29.4 % (39.0-53.0); HEMOGLOBIN 9.5 g/dL (13.0-17.5); RED BLOOD COUNT 3.59 x10^6/uL (4.30-5.70); RED CELL DISTRIBUTION WIDTH 17.8 % (11.5-14.5); WHITE BLOOD COUNT 5.6 x10^3/uL (4.0-11.0)
--- NOTE | 2018-06-23 07:37 | PDOC ---
Infectious Disease Note Subjective: Subjective pt is feeling low says has pain in the rt leg... on bipap ROS: ROS Negative except for above. 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 Oral cavity clear NECK: Supple LUNGS: Clear. HEART: S1, S2. Pacemaker ABDOMEN: Soft, nontender EXTREMITIES: Both lower extremities/feet bandaged w/ wound vac in place ( Bilat foot wounds ,see vascular note) SKIN: No rash NEUROLOGIC: Alert, responds appropriately and follows commands PICC line in place Medications: Inpatient Meds: Current Medications Medications (Trade) Dose Ordered Sig/Dee Dee Start Time Stop Time Status Last Admin Dose Admin Acetaminophen (Tylenol) 650 mg PRN Q6HRS PRN 06/21/18 13:30 Acetaminophen/ Hydrocodone Bitart (Lortab 5/325) 1 tab PRN QID PRN 06/21/18 13:30 06/22/18 10:08 DC 06/21/18 17:32 1 TAB Albuterol Sulfate (Ventolin Neb Soln) 2.5 mg PRN Q6HRS PRN 06/21/18 13:30 Amlodipine Besylate (Norvasc) 5 mg DAILY 06/22/18 17:00 06/22/18 17:00 5 MG Ascorbic Acid (Vitamin C) 500 mg DAILY 06/21/18 14:00 06/22/18 12:30 500 MG Atorvastatin Calcium (Lipitor) 20 mg QHS 06/21/18 21:00 06/22/18 20:39 20 MG Carvedilol (Coreg) 25 mg BIDWMEALS 06/21/18 17:00 06/22/18 17:01 25 MG Cefazolin Sodium/ Dextrose 50 ml @ 100 mls/hr 1X PREOP PRN 06/21/18 09:45 06/22/18 09:44 DC Clonidine HCl (Catapres) 0.1 mg PRN Q4HRS PRN 06/22/18 16:45 06/22/18 19:38 0.1 MG Cyclobenzaprine HCl (Flexeril) 10 mg PRN Q6HRS PRN 06/21/18 13:30 06/21/18 15:24 10 MG Dexamethasone Sodium Phosphate (Decadron) 20 mg STK-MED ONCE 06/22/18 06:56 06/22/18 06:57 DC Etomidate (Amidate) 20 mg STK-MED ONCE 06/22/18 07:38 06/22/18 07:39 DC Famotidine (Pepcid Vial) 20 mg STK-MED ONCE 06/22/18 06:56 06/22/18 06:57 DC Fentanyl Citrate (Fentanyl 2ml Vial) 100 mcg STK-MED ONCE 06/22/18 10:10 06/22/18 10:11 DC Furosemide (Lasix) 40 mg DAILY 06/21/18 14:00 06/22/18 12:29 40 MG Glycopyrrolate (Robinul) 1 mg STK-MED ONCE 06/22/18 08:39 06/22/18 08:40 DC Hydralazine HCl (Apresoline Inj) 20 mg STK-MED ONCE 06/22/18 08:38 06/22/18 08:39 DC Hydromorphone HCl (Dilaudid) 0.5 mg PRN Q10MIN PRN 06/22/18 07:00 06/23/18 06:59 DC Insulin Glargine (Lantus) 15 units QHS 06/21/18 21:00 06/21/18 22:14 15 UNITS Insulin Human Lispro (HumaLOG) 151-2,00: 2 UNITS 201-250... TIDWMEALS 06/21/18 17:00 Lactobacillus Rhamnosus (Culturelle) 1 cap BID 06/21/18 21:00 06/22/18 20:39 1 CAP Levothyroxine Sodium (Synthroid) 100 mcg DAILY07 06/21/18 14:00 06/23/18 05:46 100 MCG Lidocaine HCl (Lidocaine Pf 2% Vial) 5 ml STK-MED ONCE 06/22/18 06:56 06/22/18 06:57 DC Lidocaine HCl (Xylocaine-Mpf 1% 2ml Vial) 2 ml PRN 1X PRN 06/22/18 07:00 06/23/18 06:59 DC Meropenem 500 mg/ Sodium Chloride 50 ml @ 100 mls/hr Q8HRS 06/21/18 14:00 06/23/18 05:46 100 MLS/HR Miconazole Nitrate (Desenex) 1 kale TID 06/21/18 14:00 06/22/18 12:30 1 KALE Morphine Sulfate (Morphine Sulfate) 2 mg PRN Q2HR PRN 06/22/18 09:45 06/22/18 12:38 2 MG Multivitamins (Thera M Plus) 1 tab DAILY 06/21/18 14:00 06/22/18 12:30 1 TAB Neostigmine Methylsulfate (Bloxiverz) 10 mg STK-MED ONCE 06/22/18 08:39 06/22/18 08:40 DC Nitroglycerin (Nitro-Bid Oint) 2 inch Q6HRS 06/22/18 17:00 06/22/18 17:00 DC Non-Formulary Medication (Meropenem ) 500 mg Q8HRS 06/21/18 14:00 UNV Non-Formulary Medication (Sirolimus (Rapamune)) 1 mg DAILY 06/21/18 14:00 06/22/18 12:30 1 MG Non-Formulary Medication (Ubidecarenone (Coq-10)) 100 mg DAILY 06/22/18 09:00 UNV Ondansetron HCl (Zofran) 4 mg STK-MED ONCE 06/22/18 06:56 06/22/18 06:57 DC Oxycodone/ Acetaminophen (Percocet 5/325) 1 tab PRN Q4HRS PRN 06/22/18 09:45 06/23/18 06:40 1 TAB Phytonadione (Mephyton Oral Soln) 5 mg 1X ONCE 06/21/18 20:45 06/21/18 20:46 DC 06/21/18 22:07 5 MG Prochlorperazine Edisylate (Compazine) 5 mg PACU PRN PRN 06/22/18 07:00 06/23/18 06:59 DC Propofol 0 ml @ As Directed STK-MED ONCE 06/22/18 06:56 06/22/18 06:57 DC Ringer's Solution 1,000 ml @ 30 mls/hr Q24H 06/22/18 07:00 06/22/18 18:59 DC Rocuronium [place] (Zemuron) 50 mg STK-MED ONCE 06/22/18 06:57 06/22/18 06:58 DC Sevoflurane (Ultane) 90 ml STK-MED ONCE 06/22/18 09:34 06/22/18 09:35 DC Sodium Chloride 1,000 ml @ 30 mls/hr Q24H 06/22/18 07:00 06/23/18 06:40 30 MLS/HR Sodium Chloride (SODIUM CHLORIDE 20ml) 20 ml STK-MED ONCE 06/22/18 08:38 06/22/18 08:39 DC Tacrolimus (Prograf) 0.5 mg BID 06/21/18 14:00 06/22/18 20:39 0.5 MG Vitamin D (Vitamin D3) 1,000 unit DAILY 06/21/18 14:00 06/22/18 12:30 1,000 UNIT Labs: Lab Laboratory Tests Test 06/22/18 12:03 06/22/18 20:34 06/23/18 06:00 Glucose (Fingerstick) 114 mg/dL (70-99) 134 mg/dL (70-99) White Blood Count 5.6 x10^3/uL (4.0-11.0) Red Blood Count 3.59 x10^6/uL (4.30-5.70) Hemoglobin 9.5 g/dL (13.0-17.5) Hematocrit 29.4 % (39.0-53.0) Mean Corpuscular Volume 82 fL (79-100) Mean Corpuscular Hemoglobin 26 pg (25-35) Mean Corpuscular Hemoglobin Concent 32 g/dL (31-37) Red Cell Distribution Width 17.8 % (11.5-14.5) Platelet Count 123 x10^3/uL (140-400) Objective: Assessment: PAD, gangrene and osteomyelitis right foot, not improved with revascularization and I and Ds on Merrem June 22 2018 S/P RT AKA Left posterior heel wound with eschar and necrotic tissue June 22 2018 s/p debridement left heel wound down to tendon/deep tissues s/p left leg angiogram with tibial angioplasty, 2/5 DM HTN Renal transplant Renal insufficiency Warfarin therapy Plan: Plan of Care Continue meropenem cont supportive care cont wound management D/W RN LOVE,ARUNDHATI S MD Jun 23, 2018 07:37
[2018-06-23 07:45] LABS: CALCIUM 8.8 mg/dL (8.5-10.1); CREATININE 1.3 mg/dL (0.7-1.3); GFR 54.3; POTASSIUM 4.9 mmol/L (3.5-5.1)
[2018-06-23] MEDS: CARVEDILOL 12.5 MG TABLET. PO SCH ×2 (08:00→16:52)
[2018-06-23] MEDS: INSULIN LISPRO 300 UNITS/3 ML INSULN.PEN. SQ SCH ×3 (08:00→17:00)
[2018-06-23] MEDS: amLODIPine BESYLATE 5 MG TABLET PO SCH (09:00)
[2018-06-23] MEDS: LACTOBACILLUS RHAMNOSUS GG 1 CAPSULE. PO SCH ×2 (09:22→21:12)
[2018-06-23] MEDS: SIROLIMUS 1 MG PO SCH (09:23)
[2018-06-23] MEDS: ASCORBIC ACID 500 MG TABLET PO SCH (09:31)
[2018-06-23] MEDS: TACROLIMUS 0.5 MG CAPSULE PO SCH ×2 (09:32→21:12)
[2018-06-23] MEDS: MICONAZOLE NITRATE 2% TOPICAL POWDER 85GM JAR. TP SCH ×3 (09:32→21:12)
[2018-06-23] MEDS: CHOLECALCIFEROL (VITAMIN D3) 1,000 UNIT TABLET PO SCH (09:32)
[2018-06-23] MEDS: FUROSEMIDE 40 MG TABLET. PO SCH (09:33)
[2018-06-23] MEDS: MULTIVITAMIN with MINERAL TABLET. PO SCH (09:33)
[2018-06-23 11:15] VITALS: BP 154/56
--- NOTE | 2018-06-23 12:06 | PDOC ---
Provider Note Provider Note Vascular S: Patient with complaints of right stump pain. O: Awake and alert, depressed VSS, SBP 150s Right AKA stump with wound vac in place and functioning. Left heel inspected, slough with non-healing tissue in wound bed. Doppler PT biphasic, palpable DP, first toe amputation site healing. A/P: PAD, gangrene and osteomyelitis right foot, not improved with revascularization Left posterior heel wound with eschar and necrotic tissue POD#1 #1 right above-knee amputation #2 easement of wound VAC right AKA stump 26 cm long by 4 cm wide by 3 cm deep #3 debridement left heel wound less than 20 cm down to tendon/deep tissues Continue wound VAC therapy to right above-knee amputation site. Discussed with Dr. Darling and wound care nurse recommend applying wound VAC therapy to left heel with Veraflo or cleanse dressing. Continue to offload left heel in either Prafo or Kemar splint. Patient may resume anticoagulation management per cardiology or primary care. Hypertension-improved management per IM or Cardiology SS for Discharge planning FELICITA DONATO APRN Jun 23, 2018 12:06
--- NOTE | 2018-06-23 13:47 | NUR ---
SW following. Discussed with RN. SW contacted [facility] to determine if pt can return there when ready for discharge. SW will continue to follow.
[2018-06-23 14:24] LABS: PROTHROMBIN TIME PATIENT 16.5 SEC (11.7-14.0)
[2018-06-23] MEDS: MORPHINE SULFATE 2 MG/ML VIAL. IV PRN (14:50)
[2018-06-23 15:00] VITALS: BP 143/37
--- NOTE | 2018-06-23 15:00 | NUR ---
Wound Care Pt seen for wound care consultation and wound vac application to L heel DFU, s/p surgical debridement yesterday. Received orders from [facility]ascular ALISON Bullard to apply Veraflo cleanse wound vac to pt's L heel today, and leave R AKA vac on until Tuesday. Left heel dressing removed, wound cleaned, measured and photographed. Wound bed is dusky red and pale pink with fat layer and small amount of tendon exposed. Ostomy ring applied to periwound and 2 pieces of cleanse foam placed into wound bed, track pad placed directly over heel, so tubing can run through the back of the Heelmedx boot. Veraflo settings are 6 mL of NS infusing every 3 hours for 10 minutes of dwell time. L heel tubing Y-connected to R AKA vac tubing, and R AKA dressing left in place, vac showing strong seal at -125 mmHg. Assisted pt onto side to assess backside, no other wounds noted on full skin inspection, pt's buttocks and sacral areas pink and blanchable. Repositioned pt onto back, pt is currently on an Envella Air fluidized bed, provided pt's education re: bed settings. Will f/u Tuesday with Vascular for next vac change.
--- NOTE | 2018-06-23 15:03 | NUR ---
Pharmacy Warfarin Dosing Note S:Pharmacy consulted to assist with anticoagulation therapy started with target INR: 2 -3 O:JOANNA MAO is a 72 year old M with Atrial Fibrillation LABS: Last INR: 1.4 Last HGB: 9.5 Last HCT: 29.4 Last PLT: 123 Last dose of Hold given on 06/23/18 at Previous Regimen: 2 mg daily at home Vitamin K given: Y 5 mg po on 06/21/18 Drug Interaction Changes: Same Interacting Drug Ongoing Drug Interactions: Meropenem, Levothyroxine, Atorvastatin A:INR of 1.4 is below desired range. Target range for this patient is: 2 -3 P: Warfarin dose: 3 mg Today at 1600 Bridge Therapy: None Next INR due 06/24/18 Pharmacy anticoagulation service will continue to follow. KAREN KIRBY, [facility], 06/23/18 [id number]
[2018-06-23] MEDS ORDERED: WARFARIN 2 MG TABLET. PO SCH (16:00)
[2018-06-23] MEDS ORDERED: WARFARIN 3 MG TABLET. PO ONE (16:00)
--- NOTE | 2018-06-23 16:28 | PDOC ---
PROGRESS NOTES Subjective Subjective Patient seen and examined Fatigued today. Objective Objective Vital Signs Date Time Temp Pulse Resp B/P (MAP) Pulse Ox O2 Delivery O2 Flow Rate FiO2 06/23/18 15:00 98.4 60 18 143/37 (72) 96 Simple Mask 5.0 98.4 Intake and Output 06/23/18 07:00 Intake Total 350 ml Output Total 150 ml Balance 200 ml Intake Oral 0 ml IV Total 350 ml Estimated Blood Loss 150 ml # Voids 3 # Bowel Movements 1 Physical Exam Abdomen: Normal bowel sounds Heart: Regular rate General: mild distress Lungs: Clear to auscultation Assessment Assessment 1. Status post right AKA and left heel debridement POD 1. Postop care as per the surgical service. 2. Hypertension. Significantly improved today. We'll continue present medications. 3. Implantable defibrillator. Probable underlying atrial fibrillation. Continue present medications. Anticoagulation has been held and will resume as per the surgical service. 4. Hyperlipidemia. Resume statins. 5. Reported history of coronary disease. We'll check old records. Patient denies any chest pain. 6. Cardiomyopathy. Most recent echocardiogram from 3 months ago shows a ejection fraction of 40%. Continue present treatments. 7. Diabetes mellitus. As per the primary service. 8. Status post renal transplant. Continue baseline medications. Comment Review of Relevant I have reviewed the following items robina (where applicable) has been applied. Labs Laboratory Tests Test 06/21/18 20:26 06/21/18 21:45 06/22/18 04:00 06/22/18 07:18 Glucose (Fingerstick) 189 mg/dL (70-99) 91 mg/dL (70-99) Hemoglobin 10.0 g/dL (13.0-17.5) 10.2 g/dL (13.0-17.5) Hematocrit 30.8 % (39.0-53.0) 31.1 % (39.0-53.0) Mean Corpuscular Hemoglobin Concent 32 g/dL (31-37) 33 g/dL (31-37) White Blood Count 3.6 x10^3/uL (4.0-11.0) Red Blood Count 3.86 x10^6/uL (4.30-5.70) Mean Corpuscular Volume 81 fL (79-100) Mean Corpuscular Hemoglobin 26 pg (25-35) Red Cell Distribution Width 16.7 % (11.5-14.5) Platelet Count 116 x10^3/uL (140-400) Neutrophils (%) (Auto) 70 % (31-73) Lymphocytes (%) (Auto) 14 % (24-48) Monocytes (%) (Auto) 11 % (0-9) Eosinophils (%) (Auto) 4 % (0-3) Basophils (%) (Auto) 1 % (0-3) Neutrophils # (Auto) 2.5 x10^3uL (1.8-7.7) Lymphocytes # (Auto) 0.5 x10^3/uL (1.0-4.8) Monocytes # (Auto) 0.4 x10^3/uL (0.0-1.1) Eosinophils # (Auto) 0.1 x10^3/uL (0.0-0.7) Basophils # (Auto) 0.0 x10^3/uL (0.0-0.2) Prothrombin Time 15.6 SEC (11.7-14.0) Prothromb Time International Ratio 1.3 (0.8-1.1) Test 06/22/18 12:03 06/22/18 20:34 06/23/18 06:00 06/23/18 06:10 Glucose (Fingerstick) 114 mg/dL (70-99) 134 mg/dL (70-99) White Blood Count 5.6 x10^3/uL (4.0-11.0) Red Blood Count 3.59 x10^6/uL (4.30-5.70) Hemoglobin 9.5 g/dL (13.0-17.5) Hematocrit 29.4 % (39.0-53.0) Mean Corpuscular Volume 82 fL (79-100) Mean Corpuscular Hemoglobin 26 pg (25-35) Mean Corpuscular Hemoglobin Concent 32 g/dL (31-37) Red Cell Distribution Width 17.8 % (11.5-14.5) Platelet Count 123 x10^3/uL (140-400) Sodium Level 142 mmol/L (136-145) Potassium Level 4.9 mmol/L (3.5-5.1) Chloride Level 103 mmol/L (98-107) Carbon Dioxide Level 29 mmol/L (21-32) Anion Gap 10 (6-14) Blood Urea Nitrogen 36 mg/dL (8-26) Creatinine 1.3 mg/dL (0.7-1.3) Estimated GFR (Cockcroft-Gault) 54.3 Glucose Level 168 mg/dL (70-99) Calcium Level 8.8 mg/dL (8.5-10.1) Test 06/23/18 09:38 06/23/18 11:40 06/23/18 13:50 Glucose (Fingerstick) 162 mg/dL (70-99) 148 mg/dL (70-99) Prothrombin Time 16.5 SEC (11.7-14.0) Prothromb Time International Ratio 1.4 (0.8-1.1) Laboratory Tests Test 06/22/18 20:34 06/23/18 06:00 06/23/18 06:10 06/23/18 09:38 Glucose (Fingerstick) 134 mg/dL (70-99) 162 mg/dL (70-99) White Blood Count 5.6 x10^3/uL (4.0-11.0) Red Blood Count 3.59 x10^6/uL (4.30-5.70) Hemoglobin 9.5 g/dL (13.0-17.5) Hematocrit 29.4 % (39.0-53.0) Mean Corpuscular Volume 82 fL (79-100) Mean Corpuscular Hemoglobin 26 pg (25-35) Mean Corpuscular Hemoglobin Concent 32 g/dL (31-37) Red Cell Distribution Width 17.8 % (11.5-14.5) Platelet Count 123 x10^3/uL (140-400) Sodium Level 142 mmol/L (136-145) Potassium Level 4.9 mmol/L (3.5-5.1) Chloride Level 103 mmol/L (98-107) Carbon Dioxide Level 29 mmol/L (21-32) Anion Gap 10 (6-14) Blood Urea Nitrogen 36 mg/dL (8-26) Creatinine 1.3 mg/dL (0.7-1.3) Estimated GFR (Cockcroft-Gault) 54.3 Glucose Level 168 mg/dL (70-99) Calcium Level 8.8 mg/dL (8.5-10.1) Test 06/23/18 11:40 06/23/18 13:50 Glucose (Fingerstick) 148 mg/dL (70-99) Prothrombin Time 16.5 SEC (11.7-14.0) Prothromb Time International Ratio 1.4 (0.8-1.1) Medications Current Medications Ondansetron HCl (Zofran) 4 mg PRN Q6HRS PRN IV NAUSEA/VOMITING; Start 06/21/18 at 07:00; Stop 06/22/18 at 06:59; Status DC Fentanyl Citrate (Fentanyl 2ml Vial) 25 mcg PRN Q5MIN PRN IV MILD PAIN; Start 06/21/18 at 07:00; Stop 06/22/18 at 06:59; Status DC Fentanyl Citrate (Fentanyl 2ml Vial) 50 mcg PRN Q5MIN PRN IV MODERATE TO SEVERE PAIN; Start 06/21/18 at 07:00; Stop 06/22/18 at 06:59; Status DC Morphine Sulfate (Morphine Sulfate) 1 mg PRN Q10MIN PRN IV SEVERE PAIN; Start 06/21/18 at 07:00; Stop 06/22/18 at 06:59; Status DC Ringer's Solution 1,000 ml @ 30 mls/hr Q24H IV ; Start 06/21/18 at 07:00; Stop 06/21/18 at 18:59; Status DC Lidocaine HCl (Xylocaine-Mpf 1% 2ml Vial) 2 ml PRN 1X PRN ID IV START; Start at 07:00; Stop 06/21/18 at 07:01; Status DC Hydromorphone HCl (Dilaudid) 0.5 mg PRN Q10MIN PRN IV SEV PAIN, Second choice; Start 06/21/18 at 07:00; Stop 06/22/18 at 06:59; Status DC Prochlorperazine Edisylate (Compazine) 5 mg PACU PRN PRN IV NAUSEA, MRX1; Start 06/21/18 at 07:00; Stop 06/22/18 at 06:59; Status DC Cefazolin Sodium/ Dextrose 50 ml @ 100 mls/hr 1X PREOP PRN IV PRIOR TO PROCEDURE; Start 06/21/18 at 06:00; Stop 06/21/18 at 09:40; Status DC Cefazolin Sodium/ Dextrose 50 ml @ 100 mls/hr 1X PREOP PRN IV PRIOR TO PROCEDURE; Start 06/21/18 at 09:45; Stop 06/22/18 at 09:44; Status DC Acetaminophen (Tylenol) 650 mg PRN Q6HRS PRN PO MILD pain; Start 06/21/18 at 13: 30 Ascorbic Acid (Vitamin C) 500 mg DAILY PO Last administered on 06/23/18 09:31; Start 06/21/18 at 14:00 Atorvastatin Calcium (Lipitor) 20 mg QHS PO Last administered on 06/22/18 20:39 ; Start 06/21/18 at 21:00 Cyclobenzaprine HCl (Flexeril) 10 mg PRN Q6HRS PRN PO MUSCLE SPASMS Last administered on 06/21/18 15:24; Start 06/21/18 at 13:30 Furosemide (Lasix) 40 mg DAILY PO Last administered on 06/23/18 09:33; Start at 14:00 Acetaminophen/ Hydrocodone Bitart (Lortab 5/325) 1 tab PRN QID PRN PO MODERATE- SEVERE PAIN Last administered on 06/21/18 17:32; Start 06/21/18 at 13:30; Stop at 10:08; Status DC Insulin Glargine (Lantus) 15 units QHS SQ Last administered on 06/21/18 22:14; Start 06/21/18 at 21:00 Albuterol Sulfate (Ventolin Neb Soln) 2.5 mg PRN Q6HRS PRN NEB SHORTNESS OF BREATH; Start 06/21/18 at 13:30 Levothyroxine Sodium (Synthroid) 100 mcg DAILY07 PO Last administered on 05:46; Start 06/21/18 at 14:00 Carvedilol (Coreg) 25 mg BIDWMEALS PO Last administered on 06/23/18 08:00; Start 06/21/18 at 17:00 Vitamin D (Vitamin D3) 1,000 unit DAILY PO Last administered on 06/23/18 09:32 ; Start 06/21/18 at 14:00 Insulin Human Lispro (HumaLOG) 151-2,00: 2 UNITS 201-250... TIDWMEALS SQ ; Start 06/21/18 at 17:00 Lactobacillus Rhamnosus (Culturelle) 1 cap BID PO Last administered on 09:22; Start 06/21/18 at 21:00 Non-Formulary Medication (Meropenem ) 500 mg Q8HRS IV ; Start 06/21/18 at 14:00; Status UNV Miconazole Nitrate (Desenex) 1 kale TID TP Last administered on 06/23/18 14:57; Start 06/21/18 at 14:00 Multivitamins (Thera M Plus) 1 tab DAILY PO Last administered on 06/23/18 09:33 ; Start 06/21/18 at 14:00 Non-Formulary Medication (Sirolimus (Rapamune)) 1 mg DAILY PO Last administered on 06/23/18 09:23; Start 06/21/18 at 14:00 Tacrolimus (Prograf) 0.5 mg BID PO Last administered on 06/23/18 09:32; Start 06/21/18 at 14:00 Non-Formulary Medication (Ubidecarenone (Coq-10)) 100 mg DAILY PO ; Start at 09:00; Status UNV Meropenem 500 mg/ Sodium Chloride 50 ml @ 100 mls/hr Q8HRS IV Last administered on 06/23/18 14:53; Start 06/21/18 at 14:00 Clonidine HCl (Catapres) 0.1 mg PRN Q6HRS PRN PO SBP>160 Last administered on 13:50; Start 06/21/18 at 15:30; Stop 06/22/18 at 16:31; Status DC Ondansetron HCl (Zofran) 4 mg PRN Q6HRS PRN IV NAUSEA/VOMITING; Start 06/22/18 at 07:00; Stop 06/23/18 at 06:59; Status DC Fentanyl Citrate (Fentanyl 2ml Vial) 25 mcg PRN Q5MIN PRN IV MILD PAIN Last administered on 06/22/18 11:05; Start 06/22/18 at 07:00; Stop 06/23/18 at 06:59; Status DC Fentanyl Citrate (Fentanyl 2ml Vial) 50 mcg PRN Q5MIN PRN IV MODERATE TO SEVERE PAIN Last administered on 3/7/19at 10:16; Start 06/22/18 at 07:00; Stop at 06:59; Status DC Morphine Sulfate (Morphine Sulfate) 1 mg PRN Q10MIN PRN IV SEVERE PAIN; Start 06/22/18 at 07:00; Stop 06/23/18 at 06:59; Status DC Ringer's Solution 1,000 ml @ 30 mls/hr Q24H IV ; Start 06/22/18 at 07:00; Stop 06/22/18 at 18:59; Status DC Lidocaine HCl (Xylocaine-Mpf 1% 2ml Vial) 2 ml PRN 1X PRN ID PRIOR TO IV START ; Start 06/22/18 at 07:00; Stop 06/23/18 at 06:59; Status DC Hydromorphone HCl (Dilaudid) 0.5 mg PRN Q10MIN PRN IV SEV PAIN, Second choice; Start 06/22/18 at 07:00; Stop 06/23/18 at 06:59; Status DC Prochlorperazine Edisylate (Compazine) 5 mg PACU PRN PRN IV NAUSEA, MRX1; Start 06/22/18 at 07:00; Stop 06/23/18 at 06:59; Status DC Phytonadione (Mephyton Oral Soln) 5 mg 1X ONCE PO Last administered on at 22:07; Start 06/21/18 at 20:45; Stop 06/21/18 at 20:46; Status DC Hydralazine HCl (Apresoline Inj) 10 mg 1X ONCE IVP Last administered on at 00:54; Start 06/22/18 at 00:45; Stop 06/22/18 at 00:46; Status DC Propofol 0 ml @ As Directed STK-MED ONCE IV ; Start 06/22/18 at 06:56; Stop at 06:57; Status DC Dexamethasone Sodium Phosphate (Decadron) 20 mg STK-MED ONCE .ROUTE ; Start 06/22 at 06:56; Stop 06/22/18 at 06:57; Status DC Famotidine (Pepcid Vial) 20 mg STK-MED ONCE .ROUTE ; Start 06/22/18 at 06:56; Stop 06/22/18 at 06:57; Status DC Lidocaine HCl (Lidocaine Pf 2% Vial) 5 ml STK-MED ONCE .ROUTE ; Start 06/22/18 at 06:56; Stop 06/22/18 at 06:57; Status DC Ondansetron HCl (Zofran) 4 mg STK-MED ONCE .ROUTE ; Start 06/22/18 at 06:56; Stop 06/22/18 at 06:57; Status DC Rocuronium [place] (Zemuron) 50 mg STK-MED ONCE .ROUTE ; Start 06/22/18 at 06:57 ; Stop 06/22/18 at 06:58; Status DC Fentanyl Citrate (Fentanyl 2ml Vial) 100 mcg STK-MED ONCE .ROUTE ; Start at 06:57; Stop 06/22/18 at 06:58; Status DC Etomidate (Amidate) 20 mg STK-MED ONCE IV ; Start 06/22/18 at 07:38; Stop at 07:39; Status DC Hydralazine HCl (Apresoline Inj) 20 mg STK-MED ONCE .ROUTE ; Start 06/22/18 at 08 :38; Stop 06/22/18 at 08:39; Status DC Sodium Chloride (SODIUM CHLORIDE 20ml) 20 ml STK-MED ONCE IJ ; Start 06/22/18 at 08:38; Stop 06/22/18 at 08:39; Status DC Neostigmine Methylsulfate (Bloxiverz) 10 mg STK-MED ONCE .ROUTE ; Start 06/22/18 at 08:39; Stop 06/22/18 at 08:40; Status DC Glycopyrrolate (Robinul) 1 mg STK-MED ONCE .ROUTE ; Start 06/22/18 at 08:39; Stop 06/22/18 at 08:40; Status DC Sevoflurane (Ultane) 90 ml STK-MED ONCE IH ; Start 06/22/18 at 09:34; Stop at 09:35; Status DC Morphine Sulfate (Morphine Sulfate) 4 mg PRN Q2HR PRN IV PAIN SEVERE, SEE COMMENTS; Start 06/22/18 at 09:45; Stop 06/25/18 at 06:00 Morphine Sulfate (Morphine Sulfate) 2 mg PRN Q2HR PRN IV PAIN MODERATE Last administered on 06/23/18at 14:50; Start 06/22/18 at 09:45 Oxycodone/ Acetaminophen (Percocet 5/325) 1 tab PRN Q4HRS PRN PO PAIN MODERATE TO SEVERE Last administered on 06/23/18at 06:40; Start 06/22/18 at 09:45 Fentanyl Citrate (Fentanyl 2ml Vial) 100 mcg STK-MED ONCE .ROUTE ; Start at 10:10; Stop 06/22/18 at 10:11; Status DC Sodium Chloride 1,000 ml @ 30 mls/hr Q24H IV Last administered on 06/23/18at 06: 40; Start 06/22/18 at 07:00 Amlodipine Besylate (Norvasc) 5 mg DAILY PO Last administered on 06/22/18at 17:00 ; Start 06/22/18 at 17:00 Nitroglycerin (Nitro-Bid Oint) 2 inch Q6HRS TP ; Start 06/22/18 at 17:00; Stop at 17:00; Status DC Clonidine HCl (Catapres) 0.1 mg PRN Q4HRS PRN PO SBP>160 Last administered on at 19:38; Start 06/22/18 at 16:45 Warfarin Sodium (Coumadin) 2 mg DAILY16 PO ; Start 06/23/18 at 16:00; Stop at 16:00; Status DC Warfarin Sodium (Coumadin Per Physician) 1 each PRN DAILY PRN MC SEE COMMENTS; Start 06/23/18 at 13:30; Stop 06/23/18 at 13:30; Status DC Warfarin Sodium (Coumadin Per Pharmacy) 1 each PRN DAILY PRN MC SEE COMMENTS Last administered on 06/23/18at 15:03; Start 06/23/18 at 13:30 Warfarin Sodium (Coumadin) 3 mg 1X WARF ONCE PO ; Start 06/23/18 at 16:00; Stop 06/23/18 at 16:01; Status DC Active Scripts Active Vitamin C (Ascorbic Acid) 500 Mg Tablet 500 Mg PO DAILY 30 Days Tylenol (Acetaminophen) 325 Mg Tablet 650 Mg PO PRN Q6HRS PRN 10 Days Hydrocodone-Apap 5-325 (Hydrocodone Bit/Acetaminophen) 1 Tab Tablet 1 Tab PO PRN QID PRN 5 Days Aspirin Ec (Aspirin) 81 Mg Tablet.dr 81 Mg PO DAILYWBKFT 30 Days Duoneb 0.5-3(2.5) Mg/3 Ml (Albuterol/Ipratropium) 3 Ml Ampul.neb 3 Ml NEB PRN QID PRN 30 Days Reported Miconazole Nitrate 130 Gm Aero.powd 130 Gm TP TID Cyclobenzaprine Hcl 10 Mg Tablet 0-5 Tab PO PRN Q6HRS PRN Meropenem 500 Mg Vial 500 Mg IV Q8HRS Humalog (Insulin Lispro) 100 Unit/1 Ml Cartridge 0 SQ QIDACHS Lantus Solostar (Insulin Glargine,Hum.rec.anlog) 100 Unit/1 Ml Insuln.pen 15 Unit SQ QHS Warfarin Sodium 2 Mg Tablet 2 Mg PO DAILY [id number] Coq-10 (Ubidecarenone) 100 Mg Capsule 100 Mg PO DAILY Vitamin D (Cholecalciferol (Vitamin D3)) 1,000 Unit Capsule 1 Cap PO DAILY Culturelle (Lactobacillus Rhamnosus Gg) 1 Each Capsule 1 Each PO BID Multi Vitamin Daily (Multivitamin) 1 Each Tablet 1 Each PO DAILY Furosemide 40 Mg Tablet 1 Tab PO DAILY Prograf (Tacrolimus) 0.5 Mg Capsule 0.5 Mg PO BID Rapamune (Sirolimus) 1 Mg Tablet 1 Mg PO DAILY Lipitor (Atorvastatin Calcium) 20 Mg Tablet 1 Tab PO QHS Synthroid (Levothyroxine Sodium) 100 Mcg Tablet 1 Tab PO DAILY Carvedilol 25 Mg Tablet 1 Tab PO BID Vitals/I & O Vital Sign - Last 24 Hours 06/22/18 06/22/18 06/22/18 06/22/18 17:00 17:01 18:13 19:00 Temp 98.6 98.6 Pulse 69 69 84 Resp 20 18 B/P (MAP) 185/75 185/75 179/68 (105) Pulse Ox 97 O2 Delivery Simple Mask Simple Mask O2 Flow Rate 5.0 06/22/18 06/22/18 06/22/18 06/22/18 19:38 20:00 22:12 23:00 Temp 98.1 98.1 Pulse 75 86 Resp 18 B/P (MAP) 179/68 152/58 (89) Pulse Ox 97 95 O2 Delivery Mask Venturi Mask Simple Mask O2 Flow Rate 5.0 5.0 5.0 3/8/19 06/23/18 06/23/18 06/23/18 03:00 06:40 07:00 07:45 Temp 98.2 98.2 Pulse 74 63 Resp 18 18 B/P (MAP) 139/55 (83) 135/49 (77) Pulse Ox 97 97 97 97 O2 Delivery Simple Mask Simple Mask Simple Mask O2 Flow Rate 5.0 5.0 5.0 5.0 06/23/18 06/23/18 06/23/18 06/23/18 08:00 09:00 11:15 14:50 Temp 98.1 98.1 Pulse 72 63 72 Resp 18 B/P (MAP) 154/111 135/49 154/56 (88) Pulse Ox 98 98 O2 Delivery Simple Mask Simple Mask O2 Flow Rate 5.0 5.0 06/23/18 15:00 Temp 98.4 98.4 Pulse 60 Resp 18 B/P (MAP) 143/37 (72) Pulse Ox 96 O2 Delivery Simple Mask O2 Flow Rate 5.0 Intake and Output 06/22/18 06/22/18 06/23/18 15:00 23:00 07:00 Intake Total 350 ml 0 ml 0 ml Output Total 150 ml Balance 200 ml 0 ml 0 ml BELL KEMP MD Jun 23, 2018 16:28
--- NOTE | 2018-06-23 17:08 | PATHOLOGY ---
[facility] Accession Number: [id number] . 01 Material submitted: . RIGHT ABOVE THE KNEE AMPUTATION . 01 Clinical history: . Right foot osteomyelitis. . 02 Diagnosis: Right above knee amputation: - Status post transmetatarsal amputation of foot with focal re-epithelization and overlying scale crust and underlying scarring, recent hemorrhage and foreign body giant cell reaction. - Deeply penetrating ulcerated lesion of lateral foot with acute cellulitis. - Deeply penetrating ulcerated lesion of heel with acute cellulitis. - Calcification and marked luminal stenosis of femoral artery. - Calcification and focal marked luminal stenosis of posterior and anterior tibial arteries and branches. - Focal reactive changes of bone underlying ulcerated lateral foot lesion. - Organizing hemorrhage of muscle tissue of leg. - Skin and subcutaneous tissue, skeletal muscle, and bone marrow of proximal amputation margin viable. (JPM:[facility] 06/23/2018) QTP/06/23/2018 . 02 Electronically signed: . Randal Weiss MD, Pathologist NPI- [id number] . 01 Gross description: . Received fresh labeled "Pedrito Mullen, right above knee amputation" is an [id number]-[id number] amputation specimen which measures 18.5 cm from proximal bone margin to point of knee, 51.5 cm from knee to heel, and 21.5 cm from heel to distal transmetatarsal amputation site. The toes are not present. The transmetatarsal amputation site is partially healed and partially carrillo-green and ulcerated, and measures 11.0 x 1.2 cm. Upon sectioning, the tissue deep to the amputation site is green-carrillo and discolored. The lateral aspect of the foot displays an ulcerated lesion measuring 2.0 x 1.7 cm which has a maximum depth of 1.5 cm. The lesion abuts the underlying bone. This lesion is located 2.5 cm from the transmetatarsal amputation site. Present on the heel is a separate ulcerated lesion measuring 7.0 x 5.2 cm, which has a maximum depth of 1.2 cm. The lesions are located at least 50.5 cm from the closest skin and soft tissue margin and 61.5 cm from the bone resection margin. The bone resection margin is smooth and consistent with a surgical margin, and the skin and soft tissue margins are grossly viable. The specimen is also notable for an irregular bneson-brown discolored area circumferentially around the lower leg measuring 28.5 cm in length. This area is located 8.7 cm from the skin and soft tissue margin and 20.5 cm from the bone margin. The femoral artery is identified at the resection margin and is grossly calcified and shows marked stenosed. The dorsalis pedis artery is sectioned and does not display stenosis or calcification. Upon sectioning the anterior and posterior tibial arteries, Calcification of the tibial arteries and the surrounding minor blood vessels is present, with focal marked luminal stenosis. The muscle tissue deep to the previously described discolored area is diffusely red-brown and gelatinous, extending to within 2.0 cm of the proximal margin. Floatlight Loading Supervisor sections of the specimen are submitted as follows: A1 bone marrow at resection margin A2 femoral artery at resection margin, decalcified A3 veterans contact representative skin and soft tissue at resection margin A4 veterans contact representative lateral foot ulcer A5 veterans contact representative heel ulcer A6 veterans contact representative transmetatarsal amputation site A7 veterans contact representative discolored area on lower leg A8 veterans contact representative anterior and posterior tibial arteries and surrounding smaller vessels, decalcified A9 veterans contact representative dorsalis pedis artery A10 veterans contact representative bone underneath lateral foot lesion, decalcified A11 veterans contact representative discolored muscle tissue ([facility]; 06/22/2018) SYC/SYC . 02 Pathologist provided ICD-10: I70.201, L03.115 . 02 CPT . 776800 Specimen Comment: A courtesy copy of this report has been sent to Specimen Comment: [phone], , . Specimen Comment: Report sent to , and Specimen Comment: A duplicate report has been generated due to demographic updates. Performed at: [address] [place] [address] [address], [place], [place] [id number] MD Martin Garcia MD Phone: [phone] Performed at: [address] [id number] MD Randal Weiss MD Phone: [phone]
[2018-06-23 19:00] VITALS: BP 156/57
[2018-06-23] MEDS: ATORVASTATIN CALCIUM 20 MG TABLET PO SCH (21:12)
[2018-06-23] MEDS: INSULIN GLARGINE 300 UNITS/3 ML INSULN.PEN. SQ SCH (21:17)
[2018-06-23 23:00] VITALS: BP 156/60
[2018-06-24 03:00] VITALS: BP 162/63
[2018-06-24] MEDS: MEROPENEM 500 MG in IV NORMAL SALINE 50ML 50 ML IV SCH ×3 (05:46→21:21)
[2018-06-24 06:06] LABS: PROTHROMBIN TIME PATIENT 15.7 SEC (11.7-14.0)
[2018-06-24 07:00] VITALS: BP 167/57
[2018-06-24] MEDS: INSULIN LISPRO 300 UNITS/3 ML INSULN.PEN. SQ SCH ×3 (08:00→17:00)
[2018-06-24] MEDS: MICONAZOLE NITRATE 2% TOPICAL POWDER 85GM JAR. TP SCH ×3 (09:00→21:00)
[2018-06-24] MEDS: CYCLOBENZAPRINE 10 MG TABLET. PO PRN ×2 (09:10→16:03)
[2018-06-24] MEDS: oxyCODONE/APAP 5/325 1 TAB TABLET PO PRN ×2 (09:11→16:03)
[2018-06-24] MEDS: LEVOTHYROXINE 100 MCG TABLET PO SCH (09:31)
[2018-06-24] MEDS: MULTIVITAMIN with MINERAL TABLET. PO SCH (09:31)
[2018-06-24] MEDS: CARVEDILOL 12.5 MG TABLET. PO SCH ×2 (09:31→17:06)
[2018-06-24] MEDS: ASCORBIC ACID 500 MG TABLET PO SCH (09:31)
[2018-06-24] MEDS: LACTOBACILLUS RHAMNOSUS GG 1 CAPSULE. PO SCH ×2 (09:31→21:20)
[2018-06-24] MEDS: TACROLIMUS 0.5 MG CAPSULE PO SCH ×2 (09:32→21:20)
[2018-06-24] MEDS: SIROLIMUS 1 MG PO SCH (09:32)
[2018-06-24] MEDS: CHOLECALCIFEROL (VITAMIN D3) 1,000 UNIT TABLET PO SCH (09:32)
[2018-06-24] MEDS: FUROSEMIDE 40 MG TABLET. PO SCH (09:32)
[2018-06-24] MEDS: IV NORMAL SALINE 1000ML BAG 1,000 ML IV SCH (09:33)
[2018-06-24] MEDS: amLODIPine BESYLATE 5 MG TABLET PO SCH (09:37)
[2018-06-24 11:00] VITALS: BP 160/56
--- NOTE | 2018-06-24 11:12 | PDOC ---
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 Oral cavity clear NECK: Supple LUNGS: Clear. HEART: S1, S2. Pacemaker ABDOMEN: Soft, nontender EXTREMITIES: Right AKA wound vac. Left heel protector in place. SKIN: No rash NEUROLOGIC: Opens eyes to name, nonconversant RUE-PICC line clean Labs Lab Laboratory Tests Test 06/23/18 11:40 06/23/18 13:50 06/23/18 16:30 06/23/18 20:10 Glucose (Fingerstick) 148 mg/dL (70-99) 164 mg/dL (70-99) 175 mg/dL (70-99) Prothrombin Time 16.5 SEC (11.7-14.0) Prothromb Time International Ratio 1.4 (0.8-1.1) Test 06/24/18 05:00 06/24/18 08:37 Prothrombin Time 15.7 SEC (11.7-14.0) Prothromb Time International Ratio 1.3 (0.8-1.1) Glucose (Fingerstick) 99 mg/dL (70-99) Objective Assessment PAD, gangrene and osteomyelitis right foot, not improved with revascularization and I and Ds on Merrem June 22 2018 S/P right AKA on 06/22/2018 Left posterior heel wound with eschar and necrotic tissue,,s/p debridement left heel wound down to tendon/deep tissues on 06/22/2018 s/p left leg angiogram with tibial angioplasty, 2/5 DM HTN Renal transplant Renal insufficiency Warfarin therapy Plan Plan of Care Continue meropenem Probiotics Supportive care cont wound management Patient seen, examined, I agree with above. Assessment and plan was coformulated with [facility]. REMINGTON GARCIA APRN Jun 24, 2018 11:12 GENESIS LOVE MD Jun 24, 2018 15:17
--- NOTE | 2018-06-24 12:13 | NUR ---
FSBG at lunch 06/24/18 of 137 was post prandial
--- NOTE | 2018-06-24 13:02 | NUR ---
Pharmacy Warfarin Dosing Note S: Pharmacy consulted to assist with anticoagulation therapy O: JOANNA MAO is a 72 year old M with Afib LABS: Last INR: 1.3 Last HGB: 9.5 Last HCT: 29.4 Last PLT: 123 Last dose of 3 mg given on 06/23/18 at 1653 Vitamin K given: Y 5 mg po on 06/21/18 Ongoing Drug Interactions: Meropenem, Levothyroxine, Atorvastatin A:INR of 1.3 is below desired range. Target range for this patient is: 2 -3 P: Warfarin dose: 3 mg Today at 1600 Bridge Therapy: None Next INR due tomorrow Pharmacy anticoagulation service will continue to follow. Belén Schuler [facility], 06/24/18 1044
--- NOTE | 2018-06-24 14:27 | NUR ---
FACULTY CO-SIGN I have reviewed the documentation by Deyvi Mcgraw chief nursing officer, [facility].:
[2018-06-24 15:00] VITALS: BP 123/72
[2018-06-24] MEDS ORDERED: WARFARIN 3 MG TABLET. PO ONE (16:00)
--- NOTE | 2018-06-24 17:57 | PDOC ---
Provider Note Provider Note Vascular s/p right AKA and left heel debridement wound VACs in place IMP doing well PLAN: skilled JOANNA PENA MD Jun 24, 2018 17:57
--- NOTE | 2018-06-24 18:04 | PN ---
DATE: 06/23/2018 ROOM: #410. SUBJECTIVE: The patient is sleeping with facemask oxygen, easily awakens, very depressed over the entire situation. OBJECTIVE: VITAL SIGNS: Stable. He is afebrile. CHEST: Clear. HEART: Regular. ABDOMEN: Benign. EXTREMITIES: Right BKA site has a wound VAC. Wound VAC present. LABORATORY DATA: INR is 1.4. Coumadin has been restarted. BUN is 36, creatinine 1.3. Sugars have been decent. Hemoglobin is 9.5. IMPRESSION: 1. Status post right [id number] amputation. 2. Diabetes. 3. Status post renal transplant. 4. Hypertension. PLAN: Continue present treatment. Help of all consultants appreciated. DISCHARGE DISPOSITION: Is quite confusing at this point in time with the patient having used up skilled time and coming from [facility] for this. ROSS SAMUEL MD DR: JENNIFER/roman JOB#: [id number] / [id number]
[2018-06-24 19:00] VITALS: BP 166/55
[2018-06-24] MEDS: ATORVASTATIN CALCIUM 20 MG TABLET PO SCH (21:20)
[2018-06-24] MEDS: cloNIDine HCL 0.1 MG TABLET PO PRN (21:23)
[2018-06-24] MEDS: INSULIN GLARGINE 300 UNITS/3 ML INSULN.PEN. SQ SCH (21:40)
--- NOTE | 2018-06-24 22:37 | PN ---
DATE: 06/24/2018 LOCATION: He is in room 410. SUBJECTIVE: The patient is awake, alert. Nursing is working with him currently. He remains profoundly depressed and sees it very difficult to continue on after the amputation. OBJECTIVE: VITAL SIGNS: Stable. Blood pressures are actually better. O2 is still present per mask at 5 liters. Sugars have been decent. CHEST: Clear. HEART: Regular. ABDOMEN: Benign. EXTREMITIES: Wound VAC remains on the right fnedk-fgk-wibx amputation site. He has a boot present on the left foot. ASSESSMENT: 1. Peripheral arterial disease with gangrene and osteomyelitis of the right foot with qbmcj-fmh-sfqr amputation. 2. Left posterior heel wound, debrided on 06/22/2018. 3. Diabetes. 4. Hypertension. 5. Renal insufficiency. 6. Status post kidney transplant. 7. Anticoagulant therapy. PLAN: Continue antibiotics. Help of consultants appreciated. Discharge disposition at this point is uncertain. ROSS SAMUEL MD DR: JENNIFER/roman JOB#: [id number] / [id number]
[2018-06-24 23:00] VITALS: BP 164/60
[2018-06-25 03:00] VITALS: BP 142/70
[2018-06-25] MEDS: MEROPENEM 500 MG in IV NORMAL SALINE 50ML 50 ML IV SCH ×3 (06:17→22:20)
[2018-06-25] MEDS: LEVOTHYROXINE 100 MCG TABLET PO SCH (06:22)
[2018-06-25 06:31] LABS: PROTHROMBIN TIME PATIENT 17.2 SEC (11.7-14.0)
[2018-06-25 07:00] VITALS: BP 153/62
[2018-06-25] MEDS: IV NORMAL SALINE 1000ML BAG 1,000 ML IV SCH ×2 (07:00→12:53)
[2018-06-25] MEDS: INSULIN LISPRO 300 UNITS/3 ML INSULN.PEN. SQ SCH ×3 (08:00→17:00)
[2018-06-25] MEDS: MULTIVITAMIN with MINERAL TABLET. PO SCH (09:23)
[2018-06-25] MEDS: SIROLIMUS 1 MG PO SCH (09:23)
[2018-06-25] MEDS: LACTOBACILLUS RHAMNOSUS GG 1 CAPSULE. PO SCH ×2 (09:23→20:40)
[2018-06-25] MEDS: TACROLIMUS 0.5 MG CAPSULE PO SCH ×2 (09:23→20:40)
[2018-06-25] MEDS: ASCORBIC ACID 500 MG TABLET PO SCH (09:23)
[2018-06-25] MEDS: CHOLECALCIFEROL (VITAMIN D3) 1,000 UNIT TABLET PO SCH (09:23)
[2018-06-25] MEDS: FUROSEMIDE 40 MG TABLET. PO SCH (09:23)
[2018-06-25] MEDS: CARVEDILOL 12.5 MG TABLET. PO SCH ×2 (09:24→15:47)
[2018-06-25] MEDS: amLODIPine BESYLATE 5 MG TABLET PO SCH (09:24)
[2018-06-25] MEDS: MICONAZOLE NITRATE 2% TOPICAL POWDER 85GM JAR. TP SCH ×3 (09:28→20:42)
[2018-06-25] MEDS: oxyCODONE/APAP 5/325 1 TAB TABLET PO PRN ×4 (09:34→20:41)
--- NOTE | 2018-06-25 10:55 | PDOC ---
Infectious Disease Note Subjective Subjective "good to get some sleep" Pain controlled Denies N/V/D/F/C/SOA ROS ROS per HPI Vital Sign Vital Signs Vital Signs Date Time Temp Pulse Resp B/P (MAP) Pulse Ox O2 Delivery O2 Flow Rate FiO2 06/25/18 09:24 66 153/62 06/25/18 07:00 97.1 20 100 Simple Mask 5.0 97.1 Physical Exam PHYSICAL EXAM GENERAL: Sleeping HEENT: Left eye is enucleated. Oral cavity clear NECK: Supple LUNGS: Clear. HEART: S1, S2. Pacemaker ABDOMEN: Soft, nontender EXTREMITIES: Right AKA wound vac, no area redness; left heel protector in place. SKIN: No rash NEUROLOGIC: Arouses to name, more conversant RUE-PICC line clean Labs Lab Laboratory Tests Test 06/24/18 12:10 06/24/18 16:41 06/24/18 20:29 06/25/18 05:30 Glucose (Fingerstick) 137 mg/dL (70-99) 124 mg/dL (70-99) 157 mg/dL (70-99) Prothrombin Time 17.2 SEC (11.7-14.0) Prothromb Time International Ratio 1.4 (0.8-1.1) Test 06/25/18 07:21 Glucose (Fingerstick) 92 mg/dL (70-99) Objective Assessment PAD, gangrene and osteomyelitis right foot, not improved with revascularization and I and Ds,,, s/p right AKA on 06/22/2018 Left posterior heel wound with eschar and necrotic tissue,,s/p debridement left heel wound down to tendon/deep tissues on 06/22/2018 s/p left leg angiogram with tibial angioplasty, 2/5 DM HTN Renal transplant Renal insufficiency Warfarin therapy Plan Plan of Care Continue meropenem Probiotics Supportive care cont wound management Patient seen, examined, I agree with above. Assessment and plan was formulated with SOFTBALL COACH. REMINGTON GARCIA APRN Jun 25, 2018 10:55 GENESIS LOVE MD Jun 25, 2018 14:34
[2018-06-25 11:00] VITALS: BP 155/61
[2018-06-25] MEDS: cloNIDine HCL 0.1 MG TABLET PO PRN (12:52)
--- NOTE | 2018-06-25 12:55 | NUR ---
Pharmacy Warfarin Dosing Note S: Pharmacy consulted to assist with anticoagulation therapy started DIESEL TECHNICIAN MECHANIC O: JOANNA MAO is a 72 year old M with Atrial Fibrillation LABS: Last INR: 1.4 Last HGB: 9.5 Last HCT: 29.4 Last PLT: 123 Last dose of 3 mg given on 06/24/18 at 1601 Vitamin K given: YES 5 mg po on 06/21/18 Ongoing Drug Interactions: Meropenem, Levothyroxine, Atorvastatin A:INR of 1.4 is below desired range. Target range for this patient is: 2 -3 P: Warfarin dose: 3 mg Today at 1600 Bridge Therapy: None Next INR due 3/11 AM Pharmacy anticoagulation service will continue to follow. JOSEFINA RODRIGUEZ RPH, 06/25/18 [id number]
[2018-06-25 15:50] VITALS: BP 142/58
[2018-06-25] MEDS ORDERED: WARFARIN 3 MG TABLET. PO ONE (16:00)
[2018-06-25 19:30] VITALS: BP 153/63
[2018-06-25] MEDS: CYCLOBENZAPRINE 10 MG TABLET. PO PRN (20:40)
[2018-06-25] MEDS: ATORVASTATIN CALCIUM 20 MG TABLET PO SCH (20:40)
[2018-06-25] MEDS: INSULIN GLARGINE 300 UNITS/3 ML INSULN.PEN. SQ SCH (20:49)
[2018-06-25 23:00] VITALS: BP 132/57
--- NOTE | 2018-06-26 01:31 | PN ---
DATE: 06/25/2018 ROOM: 410. SUBJECTIVE: The patient is awake, alert, still is very depressed about his situation, but was actually able to visit with him quite a while this morning and get his mind off of his situation. He seems to be doing possibly a little better in this regards. OBJECTIVE: VITAL SIGNS: Stable. He is afebrile. He is awake and alert. Sugars have been decent. INR is 1.4 this morning. I discussed with nursing discharge plans back to [facility], which he can go after 7:00 this evening apparently by regulation, so we probably will wait until tomorrow till wound care is able to see him and make final plans. PHYSICAL EXAMINATION: CHEST: Clear. HEART: Regular. ABDOMEN: Benign. EXTREMITIES: Right guzty-qer-jjbv amputation site appears good with wound VAC in place and present. IMPRESSION: 1. Right qisoc-jgm-yyqo amputation. 2. Peripheral arterial disease. 3. Left posterior heel debridement. 4. Diabetes. 5. Hypertension. 6. Status post kidney transplant with immunosuppression, renal insufficiency. 7. Anticoagulant therapy. PLAN: Continue antibiotics, wound care, again anticipate discharge back to LTAC as soon as tomorrow. ROSS SAMUEL MD DR: JENNIFER/roman JOB#: [id number] / [id number]
[2018-06-26 03:00] VITALS: BP 136/56
[2018-06-26 05:54] LABS: PROTHROMBIN TIME PATIENT 18.9 SEC (11.7-14.0)
[2018-06-26] MEDS: LEVOTHYROXINE 100 MCG TABLET PO SCH (06:01)
[2018-06-26] MEDS: MEROPENEM 500 MG in IV NORMAL SALINE 50ML 50 ML IV SCH ×3 (06:01→21:39)
[2018-06-26] MEDS: oxyCODONE/APAP 5/325 1 TAB TABLET PO PRN ×3 (06:02→21:43)
[2018-06-26 07:00] VITALS: BP 142/74
[2018-06-26] MEDS ORDERED: DEXTROSE 50% 25 GM / 50ML DISP.SYRIN. IV ONE (07:30)
[2018-06-26] MEDS: INSULIN LISPRO 300 UNITS/3 ML INSULN.PEN. SQ SCH ×3 (07:55→17:00)
[2018-06-26] MEDS ORDERED: AMLO5TAB10 PO (08:25)
--- NOTE | 2018-06-26 08:28 | SNU/HH DC ---
DISCHARGE ORDERS DISCHARGE INFORMATION: DISCHARGE DATE: Jun 26, 2018 CONDITION ON DISCHARGE: Stable CODE STATUS: Code Status: Full INTERMEDIATE: SNF STAY <30 DAYS: No HOSPICE: HOSPICE: No HOSPICE EVAL & TREAT: No LTAC: ADMIT TO LTAC: Yes POST DISCHARGE ORDERS: ACTIVITY ORDERS: Activity as tolerated WEIGHT BEARING STATUS: Non weight bearing BATHING ORDERS: Shower-keep dressing dry DIET AFTER DISCHARGE: ADA WOUND/INCISION CARE: Keep wound/cast CDI, Keep wound elevated, Do not change dressing CHECKS AFTER DISCHARGE: CHECKS AFTER DISCHARGE: Check blood press - daily, Check blood sugar, ac/hs, Check your Temp as needed TREATMENT/EQUIPMENT ORDERS: ADAPTIVE EQUIPMENT NEEDED: Walker, Wheelchair RESPIRATORY EQUIPMENT NEEDED: Oxygen Physical Therapy For: Evalulation/Treatment Occupational Therapy For: Evaluation/Treatment DISCHARGE MEDICATIONS: Home Meds Active Scripts Amlodipine Besylate (AMLODIPINE BESYLATE) 5 Mg Tablet, 5 MG PO DAILY for hypertension for 30 Days, #30 TAB Prov:ROSS SAMUEL MD 06/26/18 Ascorbic Acid (VITAMIN C) 500 Mg Tablet, 500 MG PO DAILY for wound for 30 Days, #30 TAB Prov:BETZAIDA MOSQUERA MD 06/05/18 Acetaminophen (TYLENOL) 325 Mg Tablet, 650 MG PO PRN Q6HRS PRN for MILD pain for 10 Days, TAB Prov:BETZAIDA MOSQUERA MD 06/05/18 Hydrocodone Bit/Acetaminophen (HYDROCODONE-APAP 5-325 ) 1 Tab Tablet, 1 TAB PO PRN QID PRN for MODERATE-SEVERE PAIN for 5 Days, TAB Prov:BETZAIDA MOSQUERA MD 06/05/18 Aspirin (ASPIRIN EC) 81 Mg Tablet.dr, 81 MG PO DAILYWBKFT for heart disease for 30 Days, #30 TAB.SR Prov:ROSS SAMUEL MD 04/10/18 Ipratropium/Albuterol Sulfate (DUONEB 0.5-3(2.5) MG/3 ML) 3 Ml Ampul.neb, 3 ML NEB PRN QID PRN for SOA for 30 Days, EACH Prov:ROSS SAMUEL MD 04/10/18 Reported Medications Miconazole Nitrate (MICONAZOLE NITRATE) 130 Gm Aero.powd, 130 GM TP TID for fungal infection, INH 06/21/18 Cyclobenzaprine Hcl (CYCLOBENZAPRINE HCL) 10 Mg Tablet, 0-5 TAB PO PRN Q6HRS PRN for MUSCLE SPASMS, #90 TAB 06/20/18 Meropenem (MEROPENEM) 500 Mg Vial, 500 MG IV Q8HRS for ANTIBIOTIC, EACH 06/20/18 Insulin Lispro (HUMALOG) 100 Unit/1 Ml Cartridge, 0 SQ QIDACHS for DIABETES, EACH 06/20/18 Insulin Glargine,Hum.rec.anlog (LANTUS SOLOSTAR) 100 Unit/1 Ml Insuln.pen, 15 UNIT SQ QHS for DIABETES, #15 ML 3 Refills 06/20/18 Warfarin Sodium (WARFARIN SODIUM) 2 Mg Tablet, 2 MG PO DAILY [id number] for AT FIB, #30 TAB 06/20/18 Ubidecarenone (COQ-10) 100 Mg Capsule, 100 MG PO DAILY for supplement, CAP 05/22/18 Cholecalciferol (Vitamin D3) (VITAMIN D) 1,000 Unit Capsule, 1 CAP PO DAILY for bone health, #30 CAP 3 Refills 05/22/18 Lactobacillus Rhamnosus Gg (CULTURELLE) 1 Each Capsule, 1 EACH PO BID for supplement, CAP 04/02/18 Multivitamin (MULTI VITAMIN DAILY) 1 Each Tablet, 1 EACH PO DAILY for wound healing, TAB 04/02/18 Furosemide (FUROSEMIDE) 40 Mg Tablet, 1 TAB PO DAILY for essential htn, #30 TAB 5 Refills 04/02/18 Tacrolimus (PROGRAF) 0.5 Mg Capsule, 0.5 MG PO BID, CAP 02/21/18 Sirolimus (RAPAMUNE) 1 Mg Tablet, 1 MG PO DAILY, TAB 02/21/18 Atorvastatin Calcium (LIPITOR) 20 Mg Tablet, 1 TAB PO QHS for HIGH CHOLESTEROL, #90 TAB 1 Refill 02/21/18 Levothyroxine Sodium (SYNTHROID) 100 Mcg Tablet, 1 TAB PO DAILY for HYPOTHYROIDISM, #30 TAB 5 Refills 02/21/18 Carvedilol (CARVEDILOL) 25 Mg Tablet, 1 TAB PO BID for HYPERTENSION, #180 TAB 1 Refill 02/21/18 ROSS SAMUEL MD Jun 26, 2018 08:27
--- NOTE | 2018-06-26 08:28 | PDOC ---
GENERAL General: see discharge summary. VITAL SIGNS Vital Signs: Vital Signs Date Time Temp Pulse Resp B/P (MAP) Pulse Ox O2 Delivery O2 Flow Rate FiO2 06/26/18 07:02 18 96 Nasal Cannula 5.0 06/26/18 07:00 97.7 68 142/74 (96) 97.7 I & O I & O Intake and Output 06/26/18 07:00 Output Total 550 ml Balance -550 ml Output Urine Total 550 ml # Voids 1 ALLERGIES Allergies: Allergies Coded Allergies Type Severity Reaction Last Updated Verified adhesive Allergy Intermediate small blisters on skin 05/23/18 Yes piperacillin Allergy Intermediate FEVER 02/24/18 Yes tazobactam Allergy Intermediate FEVER 02/24/18 Yes MEDS Medications: Current Medications Medications (Trade) Dose Ordered Sig/Dee Dee Start Time Stop Time Status Last Admin Dose Admin Acetaminophen (Tylenol) 650 mg PRN Q6HRS PRN 06/21/18 13:30 Acetaminophen/ Hydrocodone Bitart (Lortab 5/325) 1 tab PRN QID PRN 06/21/18 13:30 06/22/18 10:08 DC 06/21/18 17:32 1 TAB Albuterol Sulfate (Ventolin Neb Soln) 2.5 mg PRN Q6HRS PRN 06/21/18 13:30 Amlodipine Besylate (Norvasc) 5 mg DAILY 06/22/18 17:00 06/25/18 09:24 5 MG Ascorbic Acid (Vitamin C) 500 mg DAILY 06/21/18 14:00 06/25/18 09:23 500 MG Atorvastatin Calcium (Lipitor) 20 mg QHS 06/21/18 21:00 06/25/18 20:40 20 MG Carvedilol (Coreg) 25 mg BIDWMEALS 06/21/18 17:00 06/25/18 15:47 25 MG Cefazolin Sodium/ Dextrose 50 ml @ 100 mls/hr 1X PREOP PRN 06/21/18 09:45 06/22/18 09:44 DC Clonidine HCl (Catapres) 0.1 mg PRN Q4HRS PRN 06/22/18 16:45 06/25/18 12:52 0.1 MG Cyclobenzaprine HCl (Flexeril) 10 mg PRN Q6HRS PRN 06/21/18 13:30 06/25/18 20:40 10 MG Dexamethasone Sodium Phosphate (Decadron) 20 mg STK-MED ONCE 06/22/18 06:56 06/22/18 06:57 DC Dextrose (Dextrose 50%-Water Syringe) 25 gm 1X ONCE 06/26/18 07:30 06/26/18 07:31 DC 06/26/18 07:28 25 GM Etomidate (Amidate) 20 mg STK-MED ONCE 06/22/18 07:38 06/22/18 07:39 DC Famotidine (Pepcid Vial) 20 mg STK-MED ONCE 06/22/18 06:56 06/22/18 06:57 DC Fentanyl Citrate (Fentanyl 2ml Vial) 100 mcg STK-MED ONCE 06/22/18 10:10 06/22/18 10:11 DC Furosemide (Lasix) 40 mg DAILY 06/21/18 14:00 06/25/18 09:23 40 MG Glycopyrrolate (Robinul) 1 mg STK-MED ONCE 06/22/18 08:39 06/22/18 08:40 DC Hydralazine HCl (Apresoline Inj) 20 mg STK-MED ONCE 06/22/18 08:38 06/22/18 08:39 DC Hydromorphone HCl (Dilaudid) 0.5 mg PRN Q10MIN PRN 06/22/18 07:00 06/23/18 06:59 DC Insulin Glargine (Lantus) 15 units QHS 06/21/18 21:00 06/25/18 20:49 15 UNITS Insulin Human Lispro (HumaLOG) 151-2,00: 2 UNITS 201-250... TIDWMEALS 06/21/18 17:00 Lactobacillus Rhamnosus (Culturelle) 1 cap BID 06/21/18 21:00 06/25/18 20:40 1 CAP Levothyroxine Sodium (Synthroid) 100 mcg DAILY07 06/21/18 14:00 06/26/18 06:01 100 MCG Lidocaine HCl (Lidocaine Pf 2% Vial) 5 ml STK-MED ONCE 06/22/18 06:56 06/22/18 06:57 DC Lidocaine HCl (Xylocaine-Mpf 1% 2ml Vial) 2 ml PRN 1X PRN 06/22/18 07:00 06/23/18 06:59 DC Meropenem 500 mg/ Sodium Chloride 50 ml @ 100 mls/hr Q8HRS 06/21/18 14:00 06/26/18 06:01 100 MLS/HR Miconazole Nitrate (Desenex) 1 kale TID 06/21/18 14:00 06/25/18 20:42 1 KALE Morphine Sulfate (Morphine Sulfate) 2 mg PRN Q2HR PRN 06/22/18 09:45 06/23/18 14:50 2 MG Multivitamins (Thera M Plus) 1 tab DAILY 06/21/18 14:00 06/25/18 09:23 1 TAB Neostigmine Methylsulfate (Bloxiverz) 10 mg STK-MED ONCE 06/22/18 08:39 06/22/18 08:40 DC Nitroglycerin (Nitro-Bid Oint) 2 inch Q6HRS 06/22/18 17:00 06/22/18 17:00 DC Non-Formulary Medication (Meropenem ) 500 mg Q8HRS 06/21/18 14:00 UNV Non-Formulary Medication (Sirolimus (Rapamune)) 1 mg DAILY 06/21/18 14:00 06/25/18 09:23 1 MG Non-Formulary Medication (Ubidecarenone (Coq-10)) 100 mg DAILY 06/22/18 09:00 UNV Ondansetron HCl (Zofran) 4 mg STK-MED ONCE 06/22/18 06:56 06/22/18 06:57 DC Oxycodone/ Acetaminophen (Percocet 5/325) 1 tab PRN Q4HRS PRN 06/22/18 09:45 06/26/18 06:02 1 TAB Phytonadione (Mephyton Oral Soln) 5 mg 1X ONCE 06/21/18 20:45 06/21/18 20:46 DC 06/21/18 22:07 5 MG Prochlorperazine Edisylate (Compazine) 5 mg PACU PRN PRN 06/22/18 07:00 06/23/18 06:59 DC Propofol 0 ml @ As Directed STK-MED ONCE 06/22/18 06:56 06/22/18 06:57 DC Ringer's Solution 1,000 ml @ 30 mls/hr Q24H 06/22/18 07:00 06/22/18 18:59 DC Rocuronium [place] (Zemuron) 50 mg STK-MED ONCE 06/22/18 06:57 06/22/18 06:58 DC Sevoflurane (Ultane) 90 ml STK-MED ONCE 06/22/18 09:34 06/22/18 09:35 DC Sodium Chloride 1,000 ml @ 30 mls/hr Q24H 06/22/18 07:00 06/25/18 12:53 30 MLS/HR Sodium Chloride (SODIUM CHLORIDE 20ml) 20 ml STK-MED ONCE 06/22/18 08:38 06/22/18 08:39 DC Tacrolimus (Prograf) 0.5 mg BID 06/21/18 14:00 06/25/18 20:40 0.5 MG Vitamin D (Vitamin D3) 1,000 unit DAILY 06/21/18 14:00 06/25/18 09:23 1,000 UNIT Warfarin Sodium (Coumadin Per Pharmacy) 1 each PRN DAILY PRN 06/23/18 13:30 06/25/18 12:54 1 EACH Warfarin Sodium (Coumadin Per Physician) 1 each PRN DAILY PRN 06/23/18 13:30 06/23/18 13:30 DC Warfarin Sodium (Coumadin) 3 mg 1X WARF ONCE 06/25/18 16:00 06/25/18 16:01 DC 06/25/18 15:46 3 MG LAB Lab: Laboratory Tests Test 06/25/18 11:38 06/25/18 17:00 06/25/18 20:32 06/26/18 04:50 Glucose (Fingerstick) 116 mg/dL (70-99) 138 mg/dL (70-99) 158 mg/dL (70-99) Prothrombin Time 18.9 SEC (11.7-14.0) Prothromb Time International Ratio 1.6 (0.8-1.1) Test 06/26/18 07:11 06/26/18 07:51 Glucose (Fingerstick) 52 mg/dL (70-99) 75 mg/dL (70-99) ROSS SAMUEL MD Jun 26, 2018 08:28
[2018-06-26] MEDS: LACTOBACILLUS RHAMNOSUS GG 1 CAPSULE. PO SCH ×2 (08:29→19:57)
[2018-06-26] MEDS: CARVEDILOL 12.5 MG TABLET. PO SCH ×2 (08:30→17:09)
[2018-06-26] MEDS: MULTIVITAMIN with MINERAL TABLET. PO SCH (08:30)
[2018-06-26] MEDS: FUROSEMIDE 40 MG TABLET. PO SCH (08:30)
[2018-06-26] MEDS: ASCORBIC ACID 500 MG TABLET PO SCH (08:30)
[2018-06-26] MEDS: TACROLIMUS 0.5 MG CAPSULE PO SCH ×2 (08:30→19:58)
[2018-06-26] MEDS: SIROLIMUS 1 MG PO SCH (08:31)
[2018-06-26] MEDS: CHOLECALCIFEROL (VITAMIN D3) 1,000 UNIT TABLET PO SCH (08:31)
[2018-06-26] MEDS: amLODIPine BESYLATE 5 MG TABLET PO SCH (08:31)
[2018-06-26] MEDS: MICONAZOLE NITRATE 2% TOPICAL POWDER 85GM JAR. TP SCH ×3 (09:26→20:10)
--- NOTE | 2018-06-26 10:14 | PDOC ---
Infectious Disease Note Subjective Subjective Doing ok Pain controlled Denies N/V/D/F/C/SOA ROS ROS o/w neg Vital Sign Vital Signs Vital Signs Date Time Temp Pulse Resp B/P (MAP) Pulse Ox O2 Delivery O2 Flow Rate FiO2 06/26/18 08:31 68 142/74 06/26/18 08:00 Nasal Cannula 5.0 06/26/18 07:02 18 96 06/26/18 07:00 97.7 97.7 Physical Exam PHYSICAL EXAM GENERAL: alert and NAD HEENT: Left eye is enucleated. Oral cavity clear NECK: Supple LUNGS: Clear. HEART: S1, S2. Pacemaker ABDOMEN: Soft, nontender EXTREMITIES: Right AKA wound vac, no area redness; left heel vac/protector in place. SKIN: No rash NEUROLOGIC: Alert, conversant RUE-PICC line clean Labs Lab Laboratory Tests Test 06/25/18 11:38 06/25/18 17:00 06/25/18 20:32 06/26/18 04:50 Glucose (Fingerstick) 116 mg/dL (70-99) 138 mg/dL (70-99) 158 mg/dL (70-99) Prothrombin Time 18.9 SEC (11.7-14.0) Prothromb Time International Ratio 1.6 (0.8-1.1) Test 06/26/18 07:11 06/26/18 07:51 Glucose (Fingerstick) 52 mg/dL (70-99) 75 mg/dL (70-99) Objective Assessment PAD, gangrene and osteomyelitis right foot, not improved with revascularization and I and Ds,,, s/p right AKA on 06/22/2018 Left posterior heel wound with eschar and necrotic tissue,,s/p debridement left heel wound down to tendon/deep tissues on 06/22/2018 s/p left leg angiogram with tibial angioplasty, 2/5 DM HTN Renal transplant Renal insufficiency Warfarin therapy Plan Plan of Care Continue meropenem labs in am Probiotics Supportive care cont wound management ? To [facility] MONICA HOLLIS MD Jun 26, 2018 10:14
[2018-06-26 11:00] VITALS: BP 140/70
--- NOTE | 2018-06-26 12:19 | NUR ---
SW following. Discussed with RN, pt ready to discharge to [facility] today. SW waiting for [facility] to determine if they have bed availability for pt today. Pt is top of the list. SW faxed updates and discharge paperwork. SW will continue to follow. RN notified.
--- NOTE | 2018-06-26 14:01 | NUR ---
Pharmacy Warfarin Dosing Note S: Pharmacy consulted to assist with anticoagulation therapy started O: JOANNA MAO is a 72 year old M with Atrial Fibrillation LABS: Last INR: 1.6 Last HGB: 9.5 Last HCT: 29.4 Last PLT: 123 Last dose of 3 mg given on 06/25/18 at 1601 Vitamin K given: 5 mg po on 06/21/18 Ongoing Drug Interactions: Meropenem, Levothyroxine, Atorvastatin A:INR of 1.6 is below desired range of 2 - 3, but trending up appropriately while patient receives 3 mg/day. P: Warfarin dose: 3 mg Today at 1600 Bridge Therapy: None Next INR due 06/27/18 Pharmacy anticoagulation service will continue to follow. LATESHA SNELL [facility], 06/26/18 1504
--- NOTE | 2018-06-26 14:35 | PDOC ---
Provider Note Provider Note Vascular S: Patient seen and examined in room, family at bedside. Dr. Stewart present for examination. O: Awake and alert VSS, afebrile Wound vac right AKA, intact, skin edges intact Wound vac with veraflo to left heel, skin edges intact, foot warm. A/P: POD #4 Right AKA, left heel debridement with wound vac Continue wound vac therapy. Antibiotics per ID. Follow up in 2 weeks with Vascular surgeon. FELICITA DONATO APRN Jun 26, 2018 14:35
[2018-06-26 15:00] VITALS: BP 159/58
[2018-06-26] MEDS: MORPHINE SULFATE 2 MG/ML VIAL. IV PRN ×2 (15:53→17:49)
[2018-06-26] MEDS ORDERED: WARFARIN 3 MG TABLET. PO ONE (16:00)
--- NOTE | 2018-06-26 16:30 | NUR ---
Wound Care: Pt seen for wc f/u and wound vac dressing changes to L heel and R AKA site. Nurse pre-medicated pt with pain meds prior to dressing removal. Wound vac dressings removed, wound cleaned, measured and photographed. R AKA open incision with some red granulation buds, sutures and fat layer exposed. Poncho-wound skin prep, one piece of silver foam placed into wound bed. Foam tracked to upper anterior thigh. Vac showing strong seal at -125mmhg. Left heel diabetic ulcer with slough and necrotic tissue noted, undermining noted, heel is boggy to touch, no healthy tissue or bleeding noted. Ostomy ring to poncho wound, 1 piece of black veraflo foam placed into wound bed filling in undermining areas. Foam tracked to left dorsal foot, good seal achieved. Veraflo setting are 12ml of NS infusing every 3 hours for 10min dwell time. Y connector applied to tubing to connect left heel and R AKA Vac together. Pt reposition for dinner, at bedside, will follow on Tue for wound vac dressing changes.
[2018-06-26 19:00] VITALS: BP 182/72
[2018-06-26] MEDS: ATORVASTATIN CALCIUM 20 MG TABLET PO SCH (19:58)
[2018-06-26] MEDS: INSULIN GLARGINE 300 UNITS/3 ML INSULN.PEN. SQ SCH (20:18)
--- NOTE | 2018-06-26 22:13 | DS ---
DATE OF DISCHARGE: 06/26/2018 PRIMARY DIAGNOSIS: Right cdhdf-nmu-yqsp amputation for diabetic foot infection and PAD with nonhealing wounds. ADDITIONAL DIAGNOSES: 1. Debridement of left heel ulcer. 2. Diabetes. 3. Status post renal transplant with immunosuppression from medications. 4. Coronary artery disease. CHIEF COMPLAINT AND HISTORY OF PRESENT ILLNESS: This 72-year-old white male admitted from [facility] for need of right knee amputation because of ongoing infection, nonhealing wounds of right foot and PAD. INR was elevated on the day that he came to the hospital for which surgery was planned and he was kept for definitive surgery the following day. SUMMARY OF STAY: The patient was admitted, underwent the right cdoax-ahk-rygh amputation and left heel debridement. Had a very stable postoperative course. Had some elevated blood pressures and meds were adjusted for the same. He was quite depressed given the whole situation that he was in. ID followed along with ongoing antibiotics and he was transferred back to LTAC on the day of discharge. DISPOSITION: The patient was transferred to [facility]. Please see orders regarding diet, medication, activity, etc. ROSS SAMUEL MD DR: JENNIFER/roman JOB#: [id number] / [id number]
[2018-06-26 22:57] VITALS: BP 168/66
[2018-06-27] MEDS: CYCLOBENZAPRINE 10 MG TABLET. PO PRN (02:11)
[2018-06-27] MEDS: oxyCODONE/APAP 5/325 1 TAB TABLET PO PRN ×2 (02:12→13:17)
[2018-06-27 02:40] VITALS: BP 161/87
[2018-06-27] MEDS: IV NORMAL SALINE 1000ML BAG 1,000 ML IV SCH (05:09)
[2018-06-27] MEDS: MEROPENEM 500 MG in IV NORMAL SALINE 50ML 50 ML IV SCH (05:09)
[2018-06-27] MEDS: LEVOTHYROXINE 100 MCG TABLET PO SCH (05:09)
[2018-06-27] MEDS: MORPHINE SULFATE 2 MG/ML VIAL. IV PRN (05:59)
[2018-06-27 07:00] VITALS: BP 147/66
[2018-06-27] MEDS: ASCORBIC ACID 500 MG TABLET PO SCH (08:39)
[2018-06-27] MEDS: CHOLECALCIFEROL (VITAMIN D3) 1,000 UNIT TABLET PO SCH (08:39)
[2018-06-27] MEDS: CARVEDILOL 12.5 MG TABLET. PO SCH (08:39)
[2018-06-27] MEDS: LACTOBACILLUS RHAMNOSUS GG 1 CAPSULE. PO SCH (08:39)
[2018-06-27] MEDS: TACROLIMUS 0.5 MG CAPSULE PO SCH (08:39)
[2018-06-27] MEDS: MULTIVITAMIN with MINERAL TABLET. PO SCH (08:39)
[2018-06-27] MEDS: amLODIPine BESYLATE 5 MG TABLET PO SCH (08:39)
[2018-06-27] MEDS: FUROSEMIDE 40 MG TABLET. PO SCH (08:39)
[2018-06-27] MEDS: SIROLIMUS 1 MG PO SCH (08:40)
[2018-06-27] MEDS: INSULIN LISPRO 300 UNITS/3 ML INSULN.PEN. SQ SCH ×2 (08:48→13:26)
[2018-06-27] MEDS: MICONAZOLE NITRATE 2% TOPICAL POWDER 85GM JAR. TP SCH (08:49)
--- NOTE | 2018-06-27 08:50 | PDOC ---
Infectious Disease Note Subjective Subjective Doing ok Pain controlled Denies N/V/D/F/C/SOA Vital Sign Vital Signs Vital Signs Date Time Temp Pulse Resp B/P (MAP) Pulse Ox O2 Delivery O2 Flow Rate FiO2 06/27/18 08:39 60 147/66 06/27/18 07:17 20 Nasal Cannula 5.0 06/27/18 07:00 98.1 90 98.1 Physical Exam PHYSICAL EXAM GENERAL: alert and NAD HEENT: Left eye is enucleated. Oral cavity clear NECK: Supple LUNGS: Clear. HEART: S1, S2. Pacemaker ABDOMEN: Soft, nontender EXTREMITIES: Right AKA wound vac, no area redness; left heel vac/protector in place. SKIN: No rash NEUROLOGIC: Alert, conversant RUE-PICC line clean Labs Lab Laboratory Tests Test 06/26/18 11:38 06/26/18 20:09 06/27/18 08:14 Glucose (Fingerstick) 80 mg/dL (70-99) 145 mg/dL (70-99) 191 mg/dL (70-99) Objective Assessment PAD, gangrene and osteomyelitis right foot, not improved with revascularization and I and Ds,,, s/p right AKA on 06/22/2018 Left posterior heel wound with eschar and necrotic tissue,,s/p debridement left heel wound down to tendon/deep tissues on 06/22/2018 s/p left leg angiogram with tibial angioplasty, 2/5 DM HTN Renal transplant Renal insufficiency Warfarin therapy Plan Plan of Care Continue meropenem labs in am Probiotics Supportive care cont wound management ? To [facility] MONICA HOLLIS MD Jun 27, 2018 08:50
--- NOTE | 2018-06-27 09:05 | PDOC ---
Infectious Disease Note Subjective Subjective Doing well Pain controlled Denies N/V/D/F/C/SOA ROS ROS o/w neg Vital Sign Vital Signs Vital Signs Date Time Temp Pulse Resp B/P (MAP) Pulse Ox O2 Delivery O2 Flow Rate FiO2 06/27/18 08:39 60 147/66 06/27/18 07:17 20 Nasal Cannula 5.0 06/27/18 07:00 98.1 90 98.1 Physical Exam PHYSICAL EXAM GENERAL: alert and NAD HEENT: Left eye is enucleated. Oral cavity clear NECK: Supple LUNGS: Clear. HEART: S1, S2. Pacemaker ABDOMEN: Soft, nontender EXTREMITIES: Right AKA wound vac, no area redness; left heel vac/protector in place. SKIN: No rash NEUROLOGIC: Alert, conversant RUE- mid line clean Labs Lab Laboratory Tests Test 06/26/18 11:38 06/26/18 20:09 06/27/18 08:14 Glucose (Fingerstick) 80 mg/dL (70-99) 145 mg/dL (70-99) 191 mg/dL (70-99) Objective Assessment PAD, gangrene and osteomyelitis right foot, not improved with revascularization and I and Ds,,, s/p right AKA on 06/22/2018 Left posterior heel wound with eschar and necrotic tissue,,s/p debridement left heel wound down to tendon/deep tissues on 06/22/2018 s/p left leg angiogram with tibial angioplasty, 2/5 DM HTN Renal transplant Renal insufficiency Warfarin therapy Plan Plan of Care Continue meropenem labs are pending Probiotics Supportive care cont wound management ? To [facility] D/w nursing MONICA HOLLIS MD Jun 27, 2018 09:05
--- NOTE | 2018-06-27 09:20 | NUR ---
SW following. Awaiting confirmation from [facility] of when pt can return there. RN notified.
[2018-06-27 09:39] LABS: BASO % 0 % (0-3); EOS # 0.2 x10^3/uL (0.0-0.7); EOS % 5 % (0-3); HEMATOCRIT 27.3 % (39.0-53.0); HEMOGLOBIN 8.9 g/dL (13.0-17.5); LYMPH # 0.4 x10^3/uL (1.0-4.8); LYMPH % 12 % (24-48); MEAN CORPUSCULAR HEMOGLOBIN 27 pg (25-35); MEAN CORPUSCULAR HGB CONC 33 g/dL (31-37); MEAN CORPUSCULAR VOLUME 82 fL (79-100); MONO # 0.4 x10^3/uL (0.0-1.1); MONO % 11 % (0-9); NEUT # 2.7 x10^3uL (1.8-7.7); NEUT % 72 % (31-73); PLATELET COUNT 134 x10^3/uL (140-400); RED BLOOD COUNT 3.34 x10^6/uL (4.30-5.70); RED CELL DISTRIBUTION WIDTH 16.8 % (11.5-14.5); WHITE BLOOD COUNT 3.8 x10^3/uL (4.0-11.0)
[2018-06-27 09:49] LABS: CALCIUM 8.9 mg/dL (8.5-10.1); CREATININE 1.1 mg/dL (0.7-1.3); GFR 65.8; POTASSIUM 4.6 mmol/L (3.5-5.1)
[2018-06-27 09:55] LABS: PROTHROMBIN TIME PATIENT 19.2 SEC (11.7-14.0)
--- NOTE | 2018-06-27 10:03 | PN ---
DATE: 06/27/2018 ROOM: 410. SUBJECTIVE: The patient is awake, alert, had a poor night sleep, is still very discouraged about his present situation. OBJECTIVE: VITAL SIGNS: Stable. He is afebrile. CHEST: Clear. HEART: Regular. ABDOMEN: Benign. EXTREMITIES: Right vhzmi-jrl-nazg amputation stump wound with wound VAC appears clean. Left heel is bandaged. I expected discharge to LTAC yesterday, but nursing states that it did not happen because of staffing problems at LTAC and may likely happen today. Discharge summary from yesterday is valid. IMPRESSION: 1. Right above the knee amputation due to nonhealing right foot amputation site with infection and peripheral arterial disease. 2. Diabetes. 3. 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 4. Left posterior heel wound debrided on 06/22/2018. 5. Hypertension, which is improved. 6. Anticoagulant therapy. PLAN: Continue present care with plans on transfer to LTAC once bed available. ROSS SAMUEL MD DR: JENNIFER/roman JOB#: [id number] / [id number]
--- NOTE | 2018-06-27 10:52 | NUR ---
Pharmacy Warfarin Dosing Note S:Pharmacy consulted to assist with anticoagulation therapy started with target INR: 2 -3 O:JOANNA MAO is a 72 year old M with Atrial Fibrillation LABS: Last INR: 1.6 Last HGB: 8.9 Last HCT: 27.3 Last PLT: 134 Last dose of 3 mg given on 06/26/18 at 1710 Previous Regimen: 2 mg daily at home Vitamin K given: Y 5 mg po on 06/21/18 Drug Interaction Changes: Same Interacting Drug Ongoing Drug Interactions: Meropenem, Levothyroxine, Atorvastatin A:INR of 1.6 is below desired range. Target range for this patient is: 2 -3 P: Warfarin dose: 4 mg Today at 1600 Bridge Therapy: None Next INR due 06/28/18 Pharmacy anticoagulation service will continue to follow. SANDRA MOHAN RPH, 06/27/18 [id number]
[2018-06-27 11:00] VITALS: BP 156/58
--- NOTE | 2018-06-27 12:50 | NUR ---
Wound Care Informed ALISON Wang of pt's L heel duskiness and unhealthy tissue present in the wound. She reported findings to Gabbi Sung, who met this RN in pt's room to assess the wound. P tibial pulse located by doppler, pedal pulse bounding and palpable. L heel vac dressing removed, cleaned, Gabbi scraped wound bed, induced a small amount of bleeding and a small amount of healthy tissue was exposed. Orders received to replace wound vac and continue pt's transfer to [facility] today. 1 piece of silver foam applied into wound bed, foam bridged to L dorsal foot. Tubing Y connected to R AKA vac tubing, vac showing strong seal at -125 mmHg continuous suction. Instructed nursing staff to disconnect vac tubing from hospital vac at time of d/c, and cover tubing with glove during transport. Spoke with ABHIJIT Alva at [facility], who agreed to have a wound vac ready for pt arrival this afternoon, as their WCRN is not available today to change dressings. Pt and family educated on not allowing left heel to rest on bed or chair at anytime, it should always be elevated, v/u. Heelmedix boot reapplied to L heel.
[2018-06-27] MEDS ORDERED: CLOPIDOGREL BISULFATE 75 MG TABLET PO SCH (13:00)
--- NOTE | 2018-06-27 13:05 | PDOC ---
PROGRESS NOTES Objective Objective Vascular Surgery - POD#5 Right AKA, left heel debridement with wound vac Asked by sapphire stylus grinder to see patient prior to going to Specialty today. Concerned for left heel wound base with last wound vac dressing change. Left heel: vac dressing has been removed. Wound base is dry with 100% slough tissue present. I can palpate bone but cannot visualize. Surrounding tissue is boggy with erythematous skin edges. Wound base debrided at bedside. Base of wound became bloody and much improved in appearance. Pulses: Able to palpate DP and strong doppled PT pulse with multiphasic signals. Assessment/PlanL 1. Continue wound vac therapy upon discharge. 2. Antibiotic therapy as per ID. 3. Patient was noted to not be on antiplatelet therapy and warfarin only. Due to recent (1 month ago) multiple angioplasties to both lower extremities, patient needs to be on Plavix upon discharge in hopes to maintain patent vessels. I have ordered a dose for today prior to discharge and informed the RN that the discharge medication reconciliation will need to include Plavix 75mg daily. Vital Signs Date Time Temp Pulse Resp B/P (MAP) Pulse Ox O2 Delivery O2 Flow Rate FiO2 06/27/18 11:00 97.8 70 16 156/58 (90) 90 Nasal Cannula 97.8 06/27/18 08:00 5.0 Intake and Output 06/27/18 06:59 Intake Total 780 ml Output Total 200 ml Balance 580 ml Intake Oral 780 ml Output Urine Total 200 ml # Voids 7 Comment Review of Relevant I have reviewed the following items robina (where applicable) has been applied. Labs Laboratory Tests Test 06/25/18 17:00 06/25/18 20:32 06/26/18 04:50 06/26/18 07:11 Glucose (Fingerstick) 138 mg/dL (70-99) 158 mg/dL (70-99) 52 mg/dL (70-99) Prothrombin Time 18.9 SEC (11.7-14.0) Prothromb Time International Ratio 1.6 (0.8-1.1) Test 06/26/18 07:51 06/26/18 11:38 06/26/18 20:09 06/27/18 08:14 Glucose (Fingerstick) 75 mg/dL (70-99) 80 mg/dL (70-99) 145 mg/dL (70-99) 191 mg/dL (70-99) Test 06/27/18 09:20 06/27/18 11:54 White Blood Count 3.8 x10^3/uL (4.0-11.0) Red Blood Count 3.34 x10^6/uL (4.30-5.70) Hemoglobin 8.9 g/dL (13.0-17.5) Hematocrit 27.3 % (39.0-53.0) Mean Corpuscular Volume 82 fL (79-100) Mean Corpuscular Hemoglobin 27 pg (25-35) Mean Corpuscular Hemoglobin Concent 33 g/dL (31-37) Red Cell Distribution Width 16.8 % (11.5-14.5) Platelet Count 134 x10^3/uL (140-400) Neutrophils (%) (Auto) 72 % (31-73) Lymphocytes (%) (Auto) 12 % (24-48) Monocytes (%) (Auto) 11 % (0-9) Eosinophils (%) (Auto) 5 % (0-3) Basophils (%) (Auto) 0 % (0-3) Neutrophils # (Auto) 2.7 x10^3uL (1.8-7.7) Lymphocytes # (Auto) 0.4 x10^3/uL (1.0-4.8) Monocytes # (Auto) 0.4 x10^3/uL (0.0-1.1) Eosinophils # (Auto) 0.2 x10^3/uL (0.0-0.7) Basophils # (Auto) 0.0 x10^3/uL (0.0-0.2) Prothrombin Time 19.2 SEC (11.7-14.0) Prothromb Time International Ratio 1.6 (0.8-1.1) Sodium Level 142 mmol/L (136-145) Potassium Level 4.6 mmol/L (3.5-5.1) Chloride Level 103 mmol/L (98-107) Carbon Dioxide Level 34 mmol/L (21-32) Anion Gap 5 (6-14) Blood Urea Nitrogen 29 mg/dL (8-26) Creatinine 1.1 mg/dL (0.7-1.3) Estimated GFR (Cockcroft-Gault) 65.8 Glucose Level 187 mg/dL (70-99) Calcium Level 8.9 mg/dL (8.5-10.1) Glucose (Fingerstick) 181 mg/dL (70-99) Laboratory Tests Test 06/26/18 20:09 06/27/18 08:14 06/27/18 09:20 06/27/18 11:54 Glucose (Fingerstick) 145 mg/dL (70-99) 191 mg/dL (70-99) 181 mg/dL (70-99) White Blood Count 3.8 x10^3/uL (4.0-11.0) Red Blood Count 3.34 x10^6/uL (4.30-5.70) Hemoglobin 8.9 g/dL (13.0-17.5) Hematocrit 27.3 % (39.0-53.0) Mean Corpuscular Volume 82 fL (79-100) Mean Corpuscular Hemoglobin 27 pg (25-35) Mean Corpuscular Hemoglobin Concent 33 g/dL (31-37) Red Cell Distribution Width 16.8 % (11.5-14.5) Platelet Count 134 x10^3/uL (140-400) Neutrophils (%) (Auto) 72 % (31-73) Lymphocytes (%) (Auto) 12 % (24-48) Monocytes (%) (Auto) 11 % (0-9) Eosinophils (%) (Auto) 5 % (0-3) Basophils (%) (Auto) 0 % (0-3) Neutrophils # (Auto) 2.7 x10^3uL (1.8-7.7) Lymphocytes # (Auto) 0.4 x10^3/uL (1.0-4.8) Monocytes # (Auto) 0.4 x10^3/uL (0.0-1.1) Eosinophils # (Auto) 0.2 x10^3/uL (0.0-0.7) Basophils # (Auto) 0.0 x10^3/uL (0.0-0.2) Prothrombin Time 19.2 SEC (11.7-14.0) Prothromb Time International Ratio 1.6 (0.8-1.1) Sodium Level 142 mmol/L (136-145) Potassium Level 4.6 mmol/L (3.5-5.1) Chloride Level 103 mmol/L (98-107) Carbon Dioxide Level 34 mmol/L (21-32) Anion Gap 5 (6-14) Blood Urea Nitrogen 29 mg/dL (8-26) Creatinine 1.1 mg/dL (0.7-1.3) Estimated GFR (Cockcroft-Gault) 65.8 Glucose Level 187 mg/dL (70-99) Calcium Level 8.9 mg/dL (8.5-10.1) Medications Current Medications Ondansetron HCl (Zofran) 4 mg PRN Q6HRS PRN IV NAUSEA/VOMITING; Start 06/21/18 at 07:00; Stop 06/22/18 at 06:59; Status DC Fentanyl Citrate (Fentanyl 2ml Vial) 25 mcg PRN Q5MIN PRN IV MILD PAIN; Start 06/21/18 at 07:00; Stop 06/22/18 at 06:59; Status DC Fentanyl Citrate (Fentanyl 2ml Vial) 50 mcg PRN Q5MIN PRN IV MODERATE TO SEVERE PAIN; Start 06/21/18 at 07:00; Stop 06/22/18 at 06:59; Status DC Morphine Sulfate (Morphine Sulfate) 1 mg PRN Q10MIN PRN IV SEVERE PAIN; Start 06/21/18 at 07:00; Stop 06/22/18 at 06:59; Status DC Ringer's Solution 1,000 ml @ 30 mls/hr Q24H IV ; Start 06/21/18 at 07:00; Stop 06/21/18 at 18:59; Status DC Lidocaine HCl (Xylocaine-Mpf 1% 2ml Vial) 2 ml PRN 1X PRN ID IV START; Start at 07:00; Stop 06/21/18 at 07:01; Status DC Hydromorphone HCl (Dilaudid) 0.5 mg PRN Q10MIN PRN IV SEV PAIN, Second choice; Start 06/21/18 at 07:00; Stop 06/22/18 at 06:59; Status DC Prochlorperazine Edisylate (Compazine) 5 mg PACU PRN PRN IV NAUSEA, MRX1; Start 06/21/18 at 07:00; Stop 06/22/18 at 06:59; Status DC Cefazolin Sodium/ Dextrose 50 ml @ 100 mls/hr 1X PREOP PRN IV PRIOR TO PROCEDURE; Start 06/21/18 at 06:00; Stop 06/21/18 at 09:40; Status DC Cefazolin Sodium/ Dextrose 50 ml @ 100 mls/hr 1X PREOP PRN IV PRIOR TO PROCEDURE; Start 06/21/18 at 09:45; Stop 06/22/18 at 09:44; Status DC Acetaminophen (Tylenol) 650 mg PRN Q6HRS PRN PO MILD pain; Start 06/21/18 at 13: 30 Ascorbic Acid (Vitamin C) 500 mg DAILY PO Last administered on 06/27/18 08:39 ; Start 06/21/18 at 14:00 Atorvastatin Calcium (Lipitor) 20 mg QHS PO Last administered on 06/26/18 19: 58; Start 06/21/18 at 21:00 Cyclobenzaprine HCl (Flexeril) 10 mg PRN Q6HRS PRN PO MUSCLE SPASMS Last administered on 06/27/18 02:11; Start 06/21/18 at 13:30 Furosemide (Lasix) 40 mg DAILY PO Last administered on 06/27/18 08:39; Start 06/21/18 at 14:00 Acetaminophen/ Hydrocodone Bitart (Lortab 5/325) 1 tab PRN QID PRN PO MODERATE- SEVERE PAIN Last administered on 06/21/18 17:32; Start 06/21/18 at 13:30; Stop at 10:08; Status DC Insulin Glargine (Lantus) 15 units QHS SQ Last administered on 06/26/18 20:18 ; Start 06/21/18 at 21:00 Albuterol Sulfate (Ventolin Neb Soln) 2.5 mg PRN Q6HRS PRN NEB SHORTNESS OF BREATH; Start 06/21/18 at 13:30 Levothyroxine Sodium (Synthroid) 100 mcg DAILY07 PO Last administered on 05:09; Start 06/21/18 at 14:00 Carvedilol (Coreg) 25 mg BIDWMEALS PO Last administered on 06/27/18 08:39; Start 06/21/18 at 17:00 Vitamin D (Vitamin D3) 1,000 unit DAILY PO Last administered on 06/27/18 08:39 ; Start 06/21/18 at 14:00 Insulin Human Lispro (HumaLOG) 151-2,00: 2 UNITS 201-250... TIDWMEALS SQ Last administered on 06/27/18 08:48; Start 06/21/18 at 17:00 Lactobacillus Rhamnosus (Culturelle) 1 cap BID PO Last administered on 08:39; Start 06/21/18 at 21:00 Non-Formulary Medication (Meropenem ) 500 mg Q8HRS IV ; Start 06/21/18 at 14:00; Status UNV Miconazole Nitrate (Desenex) 1 kale TID TP Last administered on 06/27/18 08:49 ; Start 06/21/18 at 14:00 Multivitamins (Thera M Plus) 1 tab DAILY PO Last administered on 06/27/18 08: 39; Start 06/21/18 at 14:00 Non-Formulary Medication (Sirolimus (Rapamune)) 1 mg DAILY PO Last administered on 06/27/18 08:40; Start 06/21/18 at 14:00 Tacrolimus (Prograf) 0.5 mg BID PO Last administered on 06/27/18 08:39; Start 06/21/18 at 14:00 Non-Formulary Medication (Ubidecarenone (Coq-10)) 100 mg DAILY PO ; Start at 09:00; Status UNV Meropenem 500 mg/ Sodium Chloride 50 ml @ 100 mls/hr Q8HRS IV Last administered on 06/27/18 05:09; Start 06/21/18 at 14:00 Clonidine HCl (Catapres) 0.1 mg PRN Q6HRS PRN PO SBP>160 Last administered on 13:50; Start 06/21/18 at 15:30; Stop 06/22/18 at 16:31; Status DC Ondansetron HCl (Zofran) 4 mg PRN Q6HRS PRN IV NAUSEA/VOMITING; Start 06/22/18 at 07:00; Stop 06/23/18 at 06:59; Status DC Fentanyl Citrate (Fentanyl 2ml Vial) 25 mcg PRN Q5MIN PRN IV MILD PAIN Last administered on 06/22/18 11:05; Start 06/22/18 at 07:00; Stop 06/23/18 at 06:59; Status DC Fentanyl Citrate (Fentanyl 2ml Vial) 50 mcg PRN Q5MIN PRN IV MODERATE TO SEVERE PAIN Last administered on 06/22/18at 10:16; Start 06/22/18 at 07:00; Stop at 06:59; Status DC Morphine Sulfate (Morphine Sulfate) 1 mg PRN Q10MIN PRN IV SEVERE PAIN; Start 06/22/18 at 07:00; Stop 06/23/18 at 06:59; Status DC Ringer's Solution 1,000 ml @ 30 mls/hr Q24H IV ; Start 06/22/18 at 07:00; Stop 06/22/18 at 18:59; Status DC Lidocaine HCl (Xylocaine-Mpf 1% 2ml Vial) 2 ml PRN 1X PRN ID PRIOR TO IV START ; Start 06/22/18 at 07:00; Stop 06/23/18 at 06:59; Status DC Hydromorphone HCl (Dilaudid) 0.5 mg PRN Q10MIN PRN IV SEV PAIN, Second choice; Start 06/22/18 at 07:00; Stop 06/23/18 at 06:59; Status DC Prochlorperazine Edisylate (Compazine) 5 mg PACU PRN PRN IV NAUSEA, MRX1; Start 06/22/18 at 07:00; Stop 06/23/18 at 06:59; Status DC Phytonadione (Mephyton Oral Soln) 5 mg 1X ONCE PO Last administered on at 22:07; Start 06/21/18 at 20:45; Stop 06/21/18 at 20:46; Status DC Hydralazine HCl (Apresoline Inj) 10 mg 1X ONCE IVP Last administered on at 00:54; Start 06/22/18 at 00:45; Stop 06/22/18 at 00:46; Status DC Propofol 0 ml @ As Directed STK-MED ONCE IV ; Start 06/22/18 at 06:56; Stop at 06:57; Status DC Dexamethasone Sodium Phosphate (Decadron) 20 mg STK-MED ONCE .ROUTE ; Start 06/22 at 06:56; Stop 06/22/18 at 06:57; Status DC Famotidine (Pepcid Vial) 20 mg STK-MED ONCE .ROUTE ; Start 06/22/18 at 06:56; Stop 06/22/18 at 06:57; Status DC Lidocaine HCl (Lidocaine Pf 2% Vial) 5 ml STK-MED ONCE .ROUTE ; Start 06/22/18 at 06:56; Stop 06/22/18 at 06:57; Status DC Ondansetron HCl (Zofran) 4 mg STK-MED ONCE .ROUTE ; Start 06/22/18 at 06:56; Stop 06/22/18 at 06:57; Status DC Rocuronium Napoleon (Zemuron) 50 mg STK-MED ONCE .ROUTE ; Start 06/22/18 at 06:57 ; Stop 06/22/18 at 06:58; Status DC Fentanyl Citrate (Fentanyl 2ml Vial) 100 mcg STK-MED ONCE .ROUTE ; Start at 06:57; Stop 06/22/18 at 06:58; Status DC Etomidate (Amidate) 20 mg STK-MED ONCE IV ; Start 06/22/18 at 07:38; Stop at 07:39; Status DC Hydralazine HCl (Apresoline Inj) 20 mg STK-MED ONCE .ROUTE ; Start 06/22/18 at 08 :38; Stop 06/22/18 at 08:39; Status DC Sodium Chloride (SODIUM CHLORIDE 20ml) 20 ml STK-MED ONCE IJ ; Start 06/22/18 at 08:38; Stop 06/22/18 at 08:39; Status DC Neostigmine Methylsulfate (Bloxiverz) 10 mg STK-MED ONCE .ROUTE ; Start 06/22/18 at 08:39; Stop 06/22/18 at 08:40; Status DC Glycopyrrolate (Robinul) 1 mg STK-MED ONCE .ROUTE ; Start 06/22/18 at 08:39; Stop 06/22/18 at 08:40; Status DC Sevoflurane (Ultane) 90 ml STK-MED ONCE IH ; Start 06/22/18 at 09:34; Stop at 09:35; Status DC Morphine Sulfate (Morphine Sulfate) 4 mg PRN Q2HR PRN IV PAIN SEVERE, SEE COMMENTS; Start 06/22/18 at 09:45; Stop 06/25/18 at 06:00; Status DC Morphine Sulfate (Morphine Sulfate) 2 mg PRN Q2HR PRN IV SEVERE PAIN 7-10 Last administered on 06/27/18at 05:59; Start 06/22/18 at 09:45 Oxycodone/ Acetaminophen (Percocet 5/325) 1 tab PRN Q4HRS PRN PO PAIN MODERATE TO SEVERE Last administered on 06/27/18at 02:12; Start 06/22/18 at 09:45 Fentanyl Citrate (Fentanyl 2ml Vial) 100 mcg STK-MED ONCE .ROUTE ; Start at 10:10; Stop 06/22/18 at 10:11; Status DC Sodium Chloride 1,000 ml @ 30 mls/hr Q24H IV Last administered on 06/27/18at 05 :09; Start 06/22/18 at 07:00 Amlodipine Besylate (Norvasc) 5 mg DAILY PO Last administered on 06/27/18at 08: 39; Start 06/22/18 at 17:00 Nitroglycerin (Nitro-Bid Oint) 2 inch Q6HRS TP ; Start 06/22/18 at 17:00; Stop at 17:00; Status DC Clonidine HCl (Catapres) 0.1 mg PRN Q4HRS PRN PO SBP>160 Last administered on at 12:52; Start 06/22/18 at 16:45 Warfarin Sodium (Coumadin) 2 mg DAILY16 PO ; Start 06/23/18 at 16:00; Stop at 16:00; Status DC Warfarin Sodium (Coumadin Per Physician) 1 each PRN DAILY PRN MC SEE COMMENTS; Start 06/23/18 at 13:30; Stop 06/23/18 at 13:30; Status DC Warfarin Sodium (Coumadin Per Pharmacy) 1 each PRN DAILY PRN MC SEE COMMENTS Last administered on 06/27/18at 10:52; Start 06/23/18 at 13:30 Warfarin Sodium (Coumadin) 3 mg 1X WARF ONCE PO Last administered on 06/23/18at 16:53; Start 06/23/18 at 16:00; Stop 06/23/18 at 16:01; Status DC Warfarin Sodium (Coumadin) 3 mg 1X WARF ONCE PO Last administered on 06/24/18at 16:01; Start 06/24/18 at 16:00; Stop 06/24/18 at 16:01; Status DC Warfarin Sodium (Coumadin) 3 mg 1X WARF ONCE PO Last administered on at 15:46; Start 06/25/18 at 16:00; Stop 06/25/18 at 16:01; Status DC Dextrose (Dextrose 50%-Water Syringe) 25 gm 1X ONCE IV Last administered on 03/06at 07:28; Start 06/26/18 at 07:30; Stop 06/26/18 at 07:31; Status DC Warfarin Sodium (Coumadin) 3 mg 1X WARF ONCE PO Last administered on at 17:10; Start 06/26/18 at 16:00; Stop 06/26/18 at 16:01; Status DC Warfarin Sodium (Coumadin) 4 mg 1X WARF ONCE PO ; Start 06/27/18 at 16:00; Stop 06/27/18 at 16:01 Clopidogrel Bisulfate (Plavix) 75 mg DAILYWBKFT PO ; Start 06/27/18 at 13:00; Status UNV Active Scripts Active Amlodipine Besylate 5 Mg Tablet 5 Mg PO DAILY 30 Days Vitamin C (Ascorbic Acid) 500 Mg Tablet 500 Mg PO DAILY 30 Days Tylenol (Acetaminophen) 325 Mg Tablet 650 Mg PO PRN Q6HRS PRN 10 Days Hydrocodone-Apap 5-325 (Hydrocodone Bit/Acetaminophen) 1 Tab Tablet 1 Tab PO PRN QID PRN 5 Days Aspirin Ec (Aspirin) 81 Mg Tablet.dr 81 Mg PO DAILYWBKFT 30 Days Duoneb 0.5-3(2.5) Mg/3 Ml (Albuterol/Ipratropium) 3 Ml Ampul.neb 3 Ml NEB PRN QID PRN 30 Days Reported Miconazole Nitrate 130 Gm Aero.powd 130 Gm TP TID Cyclobenzaprine Hcl 10 Mg Tablet 0-5 Tab PO PRN Q6HRS PRN Meropenem 500 Mg Vial 500 Mg IV Q8HRS Humalog (Insulin Lispro) 100 Unit/1 Ml Cartridge 0 SQ QIDACHS Lantus Solostar (Insulin Glargine,Hum.rec.anlog) 100 Unit/1 Ml Insuln.pen 15 Unit SQ QHS Warfarin Sodium 2 Mg Tablet 2 Mg PO DAILY [id number] Coq-10 (Ubidecarenone) 100 Mg Capsule 100 Mg PO DAILY Vitamin D (Cholecalciferol (Vitamin D3)) 1,000 Unit Capsule 1 Cap PO DAILY Culturelle (Lactobacillus Rhamnosus Gg) 1 Each Capsule 1 Each PO BID Multi Vitamin Daily (Multivitamin) 1 Each Tablet 1 Each PO DAILY Furosemide 40 Mg Tablet 1 Tab PO DAILY Prograf (Tacrolimus) 0.5 Mg Capsule 0.5 Mg PO BID Rapamune (Sirolimus) 1 Mg Tablet 1 Mg PO DAILY Lipitor (Atorvastatin Calcium) 20 Mg Tablet 1 Tab PO QHS Synthroid (Levothyroxine Sodium) 100 Mcg Tablet 1 Tab PO DAILY Carvedilol 25 Mg Tablet 1 Tab PO BID Vitals/I & O Vital Sign - Last 24 Hours 06/26/18 06/26/18 06/26/18 06/26/18 15:00 15:53 17:09 17:09 Temp 97.6 97.6 Pulse 63 63 Resp 18 22 22 B/P (MAP) 159/58 (91) 159/58 Pulse Ox 93 O2 Delivery Nasal Cannula Nasal Cannula Nasal Cannula O2 Flow Rate 5.0 5.0 5.0 06/26/18 06/26/18 06/26/18 06/26/18 17:49 19:00 20:00 21:43 Temp 97.5 97.5 Pulse 63 Resp 22 16 20 B/P (MAP) 182/72 (108) Pulse Ox 100 100 O2 Delivery Nasal Cannula Nasal Cannula Nasal Cannula Nasal Cannula O2 Flow Rate 5.0 5.0 4.0 5.0 06/26/18 06/27/18 06/27/18 06/27/18 22:57 02:12 02:40 03:12 Temp 97.3 97.9 97.3 97.9 Pulse 71 69 Resp 18 20 18 20 B/P (MAP) 168/66 (100) 161/87 (111) Pulse Ox 97 97 98 97 O2 Delivery Nasal Cannula Nasal Cannula Nasal Cannula Room Air O2 Flow Rate 5.0 4.0 5.0 3.5 06/27/18 06/27/18 06/27/18 06/27/18 05:59 07:00 07:17 08:00 Temp 98.1 98.1 Pulse 60 Resp 20 14 20 B/P (MAP) 147/66 (93) Pulse Ox 97 90 O2 Delivery Nasal Cannula Nasal Cannula Nasal Cannula Nasal Cannula O2 Flow Rate 3.5 5.0 5.0 5.0 06/27/18 06/27/18 06/27/18 08:39 08:39 11:00 Temp 97.8 97.8 Pulse 60 60 70 Resp 16 B/P (MAP) 147/66 147/66 156/58 (90) Pulse Ox 90 O2 Delivery Nasal Cannula Intake and Output 06/26/18 06/26/18 06/27/18 14:59 22:59 06:59 Intake Total 540 ml 240 ml Output Total 200 ml Balance 540 ml 240 ml -200 ml CHRISSIE HAZEL APRN Jun 27, 2018 13:05
[2018-06-27] MEDS ORDERED: CLOP75TA PO (13:29)
--- NOTE | 2018-06-27 14:42 | NUR ---
SS following up with discharge planning. Discharge orders received for [facility]. Proposal Lead Writer, Maren Balderas, phoned and faxed discharge order to [facility], ; fax [phone]. Pt will discharge today and go to [facility] at 1500 via [facility]. Pt and pt's RN notified.
--- NOTE | 2018-06-27 15:13 | NUR ---
discharge instructions and belongings reviewed with patient verbalized understanding. Patient was escorted out via stroller by EMS accompanied by .
[2018-06-27] MEDS ORDERED: WARFARIN 4 MG TABLET. PO ONE (16:00)
== END 2018-06-27 15:14 | disposition home or self-care (01) | DRG 854 ==
LOC: OPSVCIP 07:52 → 4 NORTH 09:45
PROVIDERS: ADMIT Surgery Vascular Surgery; ATTEND Family Medicine
PROC: 30233N1 Transfusion of Nonautologous Red Blood Cells into Peripheral Vein, Percutaneous Approach (ICD-10-PCS; 2018-06-21)
PROC: 0LBW0ZZ Excision of Left Foot Tendon, Open Approach (ICD-10-PCS; 2018-06-22)
PROC: 0Y6C0Z3 Detachment at Right Upper Leg, Low, Open Approach (ICD-10-PCS; principal; 2018-06-22 07:30)
DX: A41.9 Sepsis, unspecified organism (principal); E11.52 Type 2 diabetes mellitus with diabetic peripheral angiopathy with gangrene; L97.429 Non-pressure chronic ulcer of left heel and midfoot with unspecified severity; Z94.0 Kidney transplant status; I42.9 Cardiomyopathy, unspecified; M86.8X7 Other osteomyelitis, ankle and foot; E11.621 Type 2 diabetes mellitus with foot ulcer; E11.42 Type 2 diabetes mellitus with diabetic polyneuropathy; I11.0 Hypertensive heart disease with heart failure; L97.519 Non-pressure chronic ulcer of other part of right foot with unspecified severity; L97.529 Non-pressure chronic ulcer of other part of left foot with unspecified severity; I48.91 Unspecified atrial fibrillation; I50.9 Heart failure, unspecified; G47.30 Sleep apnea, unspecified; E78.5 Hyperlipidemia, unspecified; I25.10 Atherosclerotic heart disease of native coronary artery without angina pectoris; K21.9 Gastro-esophageal reflux disease without esophagitis; E03.9 Hypothyroidism, unspecified; M48.061 Spinal stenosis, lumbar region without neurogenic claudication; F32.9 Major depressive disorder, single episode, unspecified; I27.20 Pulmonary hypertension, unspecified; M19.90 Unspecified osteoarthritis, unspecified site; Z85.810 Personal history of malignant neoplasm of tongue; Z86.73 Personal history of transient ischemic attack (TIA), and cerebral infarction without residual deficits; Z90.49 Acquired absence of other specified parts of digestive tract; Z82.49 Family history of ischemic heart disease and other diseases of the circulatory system; Z85.528 Personal history of other malignant neoplasm of kidney; Z95.810 Presence of automatic (implantable) cardiac defibrillator; Z89.422 Acquired absence of other left toe(s)
CPT/HCPCS: 36415; 80048; 82962; 85014; 85018; 85025; 85027; 85610; 86850; 86900; 86901; 86920; 88305; A7015; J0360; J1100; J1815; J2001; J2185; J2270; J2405; J2704; J2710; J3010; J3490; J7030; J7042; J7120; J7507; P9016